=== PATIENT | male | born 1955 | race Caucasian/White ===

== ENCOUNTER → 2020-05-11 08:08 | Outpatient (CLI) | payer MEDICARE | END | disposition home or self-care (01) | LOC: D.HCCECHO 08:08 | PROVIDERS: ATTEND Internal Medicine Cardiovascular Disease | DX: I10 Essential (primary) hypertension (principal); R07.9 Chest pain, unspecified ==

== ENCOUNTER 2020-05-19 12:41 | Outpatient (CLI) | payer MEDICARE ==
[~2020-05-19] VITALS: Ht 177.8 cm; Wt 92.0 kg
--- NOTE | ~2020-05-19 | HEMODYNAMI ---
PATIENT:BRAD SUERO MEDICAL RECORD: [id number] : 51 LOCATION:[facility] ADMISSION DATE: 05/19/20 Generatedon:05/19/202014:53 Patient name: BRAD SUERO Patient #: [id number] SSN: : 1955 Date of study: 05/19/2020 Page: Of Hemodynamic Procedure Report Patient Data Patient Demographics Procedure consent was obtained First Name: BRAD Gender: Male Last Name: PIO : 1955 Patient #: [id number] Age: 64 year(s) Race: Additional ID: [id number] Contact details Address: [address] [address] State: [place] City: [place] Zip code: [address] Past Medical History Performed procedures and imaging results Date Procedure Procedure Results Comments 05/11/2020 Stress testing Positive->Intermediate with SPECT MPI risk Allergies: No known allergies Admission Admission Data Admission Date: 05/19/2020 Admission Time: 12:41 Arrival Date: 05/19/2020 Arrival Time: 0:00 Admit Source: Other Insurance Payor: Medicare [facility] #: [id number] Height (in.): 70 BSA: 2.1 (m2) Height (cm.): 177.8 BMI: 29.1 (kg/m2) Weight (lbs.): 202.83 Weight (kg.): 92 Lab Results Lab Result Date: 05/19/2020 Lab Result Time: 0:00 Biochemistry Name Units Result Min Max BUN mg/dl 16 --(---*)-- 7 18 Creatinine mg/dl 1.3 --(---*)-- 0.6 1.3 eGFR ml/min 70.12244 *-(----)-- 90 120 AM Procedure Procedure Types Cath Procedure Diagnostic Procedure LHC LHC w/Coronaries Sedation Charges Moderate Sedation up to 15 minutes Procedure Description Procedure Date Procedure Date: 05/19/2020 Procedure Start Time: 14:37 Procedure End Time: 14:52 Procedure Staff Name Function Dm Zaragoza MD Performing Physician Terra Lou RT Monitor Sita Lau RT Scrub Mary Gutierrez RN Nurse Indication Pulmonary hypertension Procedure Data Cath Procedure Fluoroscopy Diagnostic fluoroscopy Total fluoroscopy Time: 2.5 time: 2.5 min min Diagnostic fluoroscopy Total fluoroscopy dose: 711 dose: 711 mGy mGy Contrast Material Contrast Material Type Amount (ml) Isovue 370 63 Entry Location Entry Primary Successful Side Size Upsize Upsize Entry Closure [place]me[place] ccessful Closure Location (Fr) 1 (Fr) 2 (Fr) Remarks Device Remarks Radial Right 6 Fr Mechanical artery Short Compression Estimated blood loss: 5 ml Procedure Complications No complications Procedure Medications Medication Administration Route Dosage Oxygen etCO2 Nasal cannula 2 l/min Lidocaine 2% added to field 20 Heparin Flush Bag added to field 2 bags (1000units/500ml NS) 0.9% NaCl I.V. 100 ml/hr Versed I.V. 2 mg Fentanyl I.V. 50 mcg Versed I.V. 1 mg Fentanyl I.V. 50 mcg Versed I.V. 1 mg Radial Cocktail I.A. 1 syringe (Verapamil 2mg/Nitro 400mcg/Heparin 1500units) Hemodynamics Rest BSA: 2.1 (m2) O2 Consumption: Estimated: 249.01 (ml/min) O2 Consumption indexed: Estimated:118.58 (ml/min/m) Heart Rate: 76 (bpm) Pressure Samples Time Site Value (mmHg) Purpose Heart Use Rate(bpm) 14:42 LV 91/3,14 Snapshot 85 14:43 AO 80/46(58) Pullback 88 14:43 LV 103/-2,3 Pullback 88 Gradients Valve Time Site 1 Site 2 Mean SEP/DFP Peak To Heart Use (mmHg) (sec/min) Peak Rate (mmHg) (bpm) Aortic 14:43 LV AO 10 20 23 88 103/-2,3 80/46(58) Calculations Valve P-P Mean Valve Index Valve Source Name Gradient Area Flow (cm2) Aortic 23 10 23 10 Snapshots Pre Cath Intra NCS Post Cath Vital Signs Time Heart Resp SPO2 etCO2 NIBP (mmHg) Rhythm Pain Sedation Rate (ipm) (%) (mmHg) Status Level (bpm) 14:11:31 89 18 98 0 141/88(128) NSR 0 (11) 10(A) , No pain 14:15:50 85 13 100 37.4 126/76(99) NSR 0 (11) 10(A) , No pain 14:20:02 77 12 98 38.9 122/79(111) NSR 0 (11) 10(A) , No pain 14:24:14 85 17 98 38.1 129/74(104) NSR 0 (11) 10(A) , No pain 14:28:28 84 13 99 38.1 122/76(97) NSR 0 (11) 10(A) , No pain 14:32:40 80 13 99 38.9 114/75(91) NSR 0 (11) 10(A) , No pain 14:36:50 83 15 97 0 98/69(85) NSR 0 (11) 10(A) , No pain 14:40:54 78 14 97 0 109/70(92) NSR 0 (11) 9(A) , No pain 14:45:04 82 11 95 11.2 100/62(78) NSR 0 (11) 9(A) , No pain 14:49:07 80 12 96 24.6 106/70(79) NSR 0 (11) 9(A) , No pain Medications Time Medication Route Dose Verified Delivered Reason Notes Effectiveness by by 14:14:02 Oxygen etCO2 2 l/min Dm Buffie Per Nasal Nik Gutierrez RN physician cannula 14:14:07 Lidocaine 2% added 20ml Dm Buffie used for to vial Nik Gutierrez RN procedure field 14:14:13 Heparin Flush added 2 bags Dm Buffie used for Bag to Nik Gutierrez RN procedure (1000units/500ml field NS) 14:14:20 0.9% NaCl I.V. 100 Dm Buffie Per ml/hr Nik Gutierrez RN physician 14:32:41 Versed I.V. 2 mg Dm Buffie for sedation Nik Gutierrez RN 14:32:46 Fentanyl I.V. 50 mcg Dm Buffie for sedation Nik Gutierrez RN 14:38:24 Versed I.V. 1 mg Dm Buffie for sedation Nik Gutierrez RN 14:38:27 Fentanyl I.V. 50 mcg Dm Buffie for sedation Nik Gutierrez RN 14:41:50 Radial Cocktail I.A. 1 Dm Dm for (Verapamil syringe Nik Zaragoza MD vasodilation 2mg/Nitro 400mcg/Heparin 1500units) 14:42:30 Versed I.V. 1 mg Dm Mary for sedation Nik Gutierrez production internship Log Time Note 13:58:18 Informed consent obtained and on chart 14:00:55 Arrival Date: 05/19/2020 12:00:00 AM 14:01:07 Patient Height : 70 inches 14:01:15 Patient Weight : 202.83 lbs 14:01:17 Admit Source: Other 14:01:21 Insurance Payor : Medicare 14:01:49 Diagnostic Cath Status : Elective 14:02:12 Indication : Pulmonary hypertension 14:02:18 ACC Patient presents with Stable Angina CCS Anginal Class 2--Slight limitation of ordinary activity. 14:02:21 Procedure Status Elective Heart Cath (OP). 14:02:23 Time tracking: Regular hours (M-F 7:00 - 5:00) 14:02:29 Plan of Care:Hemodynamics will remain stable., Cardiac rhythm will remain stable., Comfort level will be maintained., Respiratory function will remain adequate., Patient/ family verbilizes understanding of procedure., Procedure tolerated without complication., Recovers from procedure without complications.. 14:02:43 H&P Date Dictated: 04/30/2020 Within 30 days and on chart.. 14:02:45 Pre-procedure instructions explained to patient. 14:02:45 Pre-op teaching completed and patient verbalized understanding. 14:02:47 Family in patients room. 14:02:48 Patient NPO since Midnight. 14:02:50 Sita Lau RT(R) sent for patient. Start room use. 14:02:58 Patient allergic to No known allergies 14:03:16 Stress Test: yes; abnormal INFERIOR 14:06:14 Lab Result : Creatinine 1.3 mg/dl 14:06:14 Lab Result : BUN 16 mg/dl 14:06:21 Patient received from Pre/Post Procedure Room to CCL 2 Alert and oriented. Tansferred to table in Supine position. 14:06:22 Vital chart was started 14:06:35 Warm blankets applied, and pollo hugger turned on for patient comfort. 14:06:37 Correct patient and procedure confirmed by team. 14:06:40 ECG and BP/O2 sat monitors applied to patient. 14:06:48 Is the patient allergic to Iodine/contrast media? No. 14:06:49 Was the patient premedicated? No 14:06:51 Is patient on blood thinner?No 14:06:53 Patient diabetic? Yes. 14:06:55 If diabetic: On Metformin? Yes 14:07:01 If on Metformin: Last Dose? 05/17/2020 14:07:02 ----Pre-sedation anethsthesia assessment.---- 14:08:38 Lab Result : eGFR AM 70.03509 ml/min 14:09:01 Previous problem with sedation/anesthesia? No ? 14:13:30 Snore? Yes 14:13:31 Sleep apnea? No 14:13:32 Deviated septum? No 14:13:33 Opens mouth fully? Yes 14:13:34 Sticks out tongue? Yes 14:13:36 Airway obstruction? No ? 14:13:40 Dentures? No ? 14:14:02 Oxygen 2 l/min etCO2 Nasal cannula was administered by Mary Gutierrez RN; Per physician; Verbal order read back and verified. 14:14:07 Lidocaine 2% 20ml vial added to field was administered by Mary Gutierrez RN; used for procedure; Verbal order read back and verified. 14:14:13 Heparin Flush Bag (1000units/500ml NS) 2 bags added to field was administered by Mary Gutierrez RN; used for procedure; Verbal order read back and verified. 14:14:20 0.9% NaCl 100 ml/hr I.V. was administered by Mary Gutierrez RN; Per physician; Verbal order read back and verified. 14:16:20 Pre procedure: right dorsailis pedis pulse 1+ Palpable, but thready & weak; easily obliterated 14:16:22 Modified Shmuel's test Ulnar < 7 seconds 14:16:30 Patient pain scale 0/10 ?. 14:16:36 IV patent on arrival in left hand with 0.9% NaCl at [facility]. 14:16:38 Lab results completed and on chart. 14:16:42 Right Radial & Right Groin area was prepped with chlora-prep and draped in sterile fashion 14:16:43 Alarms reviewed by R. N. 14:16:43 Sharps counted by scrub and verified by R.N. 14:18:52 Baseline sample Acquired. 14:18:57 Rhythm: sinus rhythm 14:29:15 Use device set Radial Dx or PCI 14:29:16 ACIST Syringe (74239) opened to sterile field. 14:29:17 Medline Cath Pack ([id number]) opened to sterile field. 14:29:17 Bag Decanter (2002) opened to sterile field. 14:29:18 ACIST Hand Control (73607) opened to sterile field. 14:29:18 ACIST Manifold (79070) opened to sterile field. 14:29:19 MBrace Wrist Support (001525981) opened to sterile field. 14:29:20 NEEDLE Cook 21G 4cm Radial (Q90171) opened to sterile field. 14:29:23 EMERALD Guide Wire (502-043) opened to sterile field. 14:29:23 SHEATH 6FR RAIN (6174690) opened to sterile field. 14:30:49 Risk of Mortality: 0.1 14:30:52 Risk of blood transfusion: 10.6 14:30:55 Risk of KHANG: 0.3 14:31:09 --------ALL STOP TIME OUT------ 14:31:10 Final Timeout: patient, procedure, and site verified with staff and physician. All members of the team are in agreement. 14:31:13 Right Radial & Right Groin site verified by team. 14:31:16 Fire Safety Assessment: A--An alcohol-based skin anteseptic being used preoperatively., C--Open oxygen or nitrous oxide is being used., D--An ESU, laser, or fiber-optic light is being used. 14:31:20 Physical assessment completed. ASA score P 2 - A patient with mild systemic disease as per Dm Zaragoza MD. 14:31:26 2) 60-89 Mildly reduced kidney function, and other findings (as for stage 1) point to kidney disease. 14:31:33 Maximum allowable contrast dose (3.7 X eGFR X 0.75)197 ml. 14:31:37 Sedation plan: IV Moderate Sedation Medication:Versed, Fentanyl 14:32:41 Versed 2 mg I.V. was administered by Mary Gutierrez RN; for sedation; Verbal order read back and verified. 14:32:46 Fentanyl 50 mcg I.V. was administered by Mary Gutierrez RN; for sedation; Verbal order read back and verified. 14:36:59 Procedure started. 14:36:59 Full Disclosure recording started 14:37:53 Local anesthetic to right radial artery with Lidocaine 2% by Dm Zaragoza MD.INITIAL ACCESS ONLY 14:38:24 Versed 1 mg I.V. was administered by Mary Gutierrez RN; for sedation; Verbal order read back and verified. 14:38:27 Fentanyl 50 mcg I.V. was administered by Mary Gutierrez RN; for sedation; Verbal order read back and verified. 14:40:42 A 6 Fr Short sheath was inserted into the Right Radial artery 14:41:02 LV gram done using KNOWLES 14:41:50 Radial Cocktail (Verapamil 2mg/Nitro 400mcg/Heparin 1500units) 1 syringe I.A. was administered by Dm Zaragoza MD; for vasodilation; Verbal order read back and verified. 14:42:30 Versed 1 mg I.V. was administered by Mary Gutierrez RN; for sedation; Verbal order read back and verified. 14:42:34 Injector settings: Ml/sec: 5, Volume: 15, 14:42:43 LV hemodynamics recorded. 14:42:58 EF : 50 % 14:43:23 LCA angiography performed. 14:44:52 Injector settings: Ml/sec: 3, Volume: 6, 14:45:54 RCA angiography performed. 14:45:57 Injector settings: Ml/sec: 3, Volume: 6, 14:46:34 ACCDominant side:Left 14:48:03 Catheter removed. 14:48:22 Sheath removed intact; hemostasis achieved with Mechanical Compression to the Right Radial artery. 14:48:26 Procedure ended.(Physican Out) 14:49:13 Fluoroscopy time 02.50 minutes. 14:49:18 Flurop Dose total: 711 14:49:18 Fluoroscopy dose: 711 mGy 14:49:22 Dose Area Product 66869 mGy/cm. 14:49:46 Contrast amount:Isovue 370 63ml. 14:49:49 Maximum allowable dose exceeded? No. 14:49:50 Sharps counted by scrub and verified by R.N. 14:49:53 [place] band inflated with 10cc of air. 14:49:55 Post Procedure Pulses reassessed and unchanged 14:49:58 Post procedure: right dorsailis pedis pulse 2+ Normal; easily identifiable; not easily obliterated. 14:50:01 Post-procedure physical assessment completed. ASA score P 2 - A patient with mild systemic disease as per Dm Zaragoza MD. 14:50:04 Post procedure rhythm: unchanged. 14:50:11 Estimated blood loss: 5 ml 14:50:13 Post procedure instruction explained to patient.Patient verbalizes understanding. 14:50:13 Patient needs reinforcement of post procedure teaching. 14:50:31 Procedure type changed to Cath procedure, Diagnostic procedure, LHC, C w/Coronaries, Sedation Charges, Moderate Sedation up to 15 minutes 14:51:34 Procedure and supply charges have been captured, reviewed, submitted and are correct. 14:51:38 Procedure Complication : No complications 14:51:40 Vital chart was stopped 14:51:50 [facility] Findings: MVD- CABG consult 14:51:54 Operative report dictated upon procedure completion. 14:51:54 See physician's report for complete and final results. 14:51:57 Report given to Pre/Post Procedure Room. 14:52:00 Patient transfered to Pre/Post Procedure Room with Stretcher. 14:52:02 Procedure ended. 14:52:02 Full Disclosure recording stopped 14:52:10 End room use (Document Last) Device Usage Item Name Manufacture Quantity Catalog Hospital Part Current Minima l Lot# / Number Charge Number Stock Stock Serial# Code ACIST Acist 1 30121 668310 [id number] [id number] 20 Syringe Medical (48998) Systems Inc Medline Medline 1 [id number] 880852 56092 055137 5 Cath Pack ([id number]) Bag Microtek 1 338949 66364 076024 5 Decanter Medical Inc. () ACIST Hand Acist 1 58649 030780 548287 539920 5 Control Medical (70946) Systems Inc ACIST Acist 1 13066 846893 101308 411804 5 Manifold Medical (89999) Systems Inc MBrace Advanced 1 140-0250-00 107644 89967 751767 5 Wrist Vascular Support Dynamics ([id number]) NEEDLE Cook Cook Medical 1 [id number] 885322 990070 579399 5 21G 4cm Radial (J97901) EMERALD Cardinal 1 502-455 057121 337013 926036 5 [facility] (533-164) SHEATH 6FR Cardinal 1 [id number] 529988 3899827 372839 5 [facility] ([id number]) Signature Audit Harper Stage Time Signature Unsigned Intra-Procedure 05/19/2020 Terra Lou 2:51:09 PM RT(R) Intra-Procedure 05/19/2020 Mary Gutierrez RN 2:52:55 PM Intra-Procedure 05/19/2020 Dm Zaragoza MD 2:53:29 PM Signatures Performing Physician : Signature : Dm Zaragoza MD Date : Time : Monitor : Terra Lou Signature : RT Date : Time : Nurse : Mary Gutierrez RN Signature : Date : Time : [address] [address]
[2020-05-19] MEDS ORDERED: LISINOPRIL20 MG PO (13:06)
[2020-05-19] MEDS ORDERED: LIPITOR40 MG PO (13:06)
[2020-05-19] MEDS ORDERED: GLYBURIDE5 M1 PO (13:06)
[2020-05-19] MEDS ORDERED: PIOGLITAZONE PO (13:07)
[2020-05-19] MEDS ORDERED: GLUCOPHAGE1000 MG PO (13:07)
[2020-05-19] MEDS ORDERED: BAYER CHEWABLE81 MG PO (13:08)
[2020-05-19] MEDS ORDERED: PIOGLITAZONE15 MG PO (13:08)
[2020-05-19 13:17] VITALS: BP 144/81; Ht 177.8 cm; Wt 92.0 kg
[2020-05-19 13:59] LABS: ANION GAP 12.5 mmol/L (8-16); CALCIUM 9.5 mg/dL (8.5-10.1); CARBON DIOXIDE 26.8 mmol/L (21.0-32.0); CHOL - HDL RATIO 2.5 ratio (2.3-4.9); CREATININE - SERUM 1.3 mg/dL (0.6-1.3); LDL-HDL RATIO 1.3 ratio (1.5-3.5); POTASSIUM - SERUM 4.3 mmol/L (3.5-5.1)
[2020-05-19 14:08] LABS: BASOPHILS 0.5 % (0-2); EOSINOPHILS 1.1 % (0-7); HEMATOCRIT 34.4 % (42.0-54.0); HEMOGLOBIN 11.3 g/dL (13.5-17.5); IMMATURE GRANULOCYTES 0.2 % (0-5); LYMPHOCYTES 35.7 % (15-50); MCH 29.3 pg (26.0-34.0); MCHC 32.8 g/dL (31.0-37.0); MCV 89.1 fL (80.0-100.0); MONOCYTES 6.3 % (2-11); NEUTROPHILS 56.2 % (40-80); PLATELET COUNT 231 10x3/uL (130-400); RBC 3.86 10x6/uL (4.20-6.10); RDW 14.9 % (11.5-14.5); WBC 6.2 10x3/uL (4.8-10.8)
--- NOTE | 2020-05-19 15:06 | NUR ---
PT ARRIVED BY STRETCHER. PLACED ON MONITORS. ASSESSMENT COMPLETED. VSS. FAMILY AT BEDSIDE. DR. CUMMINGS AT BEDSIDE SPEAKING WITH PT AND PT'S REGARDING PLAN OF CARE.
--- NOTE | 2020-05-19 15:19 | NUR ---
PT RESTING COMFORTABLY. RIGHT WRIST Z BAND IN PLACE. NO BLEEDING/HEMATOMA NOTED. SPOKE WITH DR. SONI'S NURSE PEDRO. SHE WILL BRING APPT CARD OVER TO PT BEFORE DISCHARGE TIME.
--- NOTE | 2020-05-19 15:50 | NUR ---
PT RESTING COMFORTABLY. VSS. RIGHT WRIST Z BAND IN PLACE. NO BLEEDING/HEMATOMA NOTED. CALL LIGHT WITHIN REACH. FAMILY AT BEDSIDE. PT DENIES NAUSEA/PAIN. SET UP WITH SANDWICH TRAY AND DRINK AT THIS TIME.
--- NOTE | 2020-05-19 16:05 | NUR ---
RIGHT WRIST Z BAND IN PLACE. NO BLEEDING/HEMATOMA NOTED. CALL LIGHT WITHIN REACH. VSS AT THIS TIME. 3cc OF AIR REMOVED FROM Z BAND. NO BLEEDING/HEMATOMA NOTED. FAMILY AT BEDSIDE. NO NEEDS AT THIS TIME.
--- NOTE | 2020-05-19 16:20 | NUR ---
3cc OF AIR REMOVED FROM Z BAND. NO BLEEDING/HEMATOMA NOTED.
--- NOTE | 2020-05-19 16:35 | NUR ---
3cc OF AIR REMOVED FROM Z BAND. NO BLEEDING/HEMATOMA NOTED.
--- NOTE | 2020-05-19 16:45 | NUR ---
Z BAND REMOVED AND DRESSING APPLIED. NO BLEEDING/HEMATOMA NOTED. PIV D/C'D WITH CATH TIP INTACT. TOLERATED WELL. VSS AT THIS TIME. PT INSTRUCTED TO GET UP AND DRESSED AT THIS TIME. FAMILY AT BEDSIDE TO ASSIST. CALL LIGHT WITHIN REACH.
--- NOTE | 2020-05-19 17:00 | NUR ---
PT AMBULATED TO RESTROOM. VOIDED WITHOUT DIFFICULTY. STEADY GAIT NOTED. RIGHT WRIST DRESSING C/D/I. NO S/S OF HEMATOMA NOTED. PT TAKEN DOWN TO VEHICLE BY WHEELCHAIR. NO S/S OF DISTRESS NOTED. ALL BELONGINGS AND PAPERWORK IN HAND.
== END 2020-05-19 17:00 | disposition home or self-care (01) ==
LOC: D.CATH 12:41
PROVIDERS: ATTEND Internal Medicine Cardiovascular Disease
DX: I25.119 Atherosclerotic heart disease of native coronary artery with unspecified angina pectoris (principal); R94.39 Abnormal result of other cardiovascular function study; E78.5 Hyperlipidemia, unspecified; E11.9 Type 2 diabetes mellitus without complications; I10 Essential (primary) hypertension; Z79.84 Long term (current) use of oral hypoglycemic drugs

== ENCOUNTER 2020-05-24 16:07 | Inpatient (IN) | payer MEDICARE ==
[~2020-05-24] VITALS: Ht 177.8 cm; Wt 93.9 kg
[~2020-05-24 16:07] MED LIST: BAYER CHEWABLE81 MG PO; GLUCOPHAGE1000 MG PO; GLYBURIDE5 M1 PO; LIPITOR40 MG PO; LISINOPRIL20 MG PO; PIOGLITAZONE PO; PIOGLITAZONE15 MG PO
[2020-05-25] MEDS ORDERED: METOPROLOL TART25 MG PO (11:17)
[2020-05-25 12:40] LABS: PROTIME 13.2 SECONDS (11.6-15.0)
[2020-05-25 12:41] LABS: APTT 39.3 SECONDS (22.8-39.4)
[2020-05-25 12:48] LABS: BASOPHILS 0.6 % (0-2); EOSINOPHILS 1.4 % (0-7); HEMOGLOBIN 11.1 g/dL (13.5-17.5); IMMATURE GRANULOCYTES 0.2 % (0-5); LYMPHOCYTES 38.8 % (15-50); MCHC 32.6 g/dL (31.0-37.0); MCV 88.8 fL (80.0-100.0); MEAN PLATELET VOLUME 9.5 fL (7.4-10.4); MONOCYTES 6.2 % (2-11); NEUTROPHILS 52.8 % (40-80); PLATELET COUNT 237 10x3/uL (130-400); RBC 3.83 10x6/uL (4.20-6.10); RDW 14.7 % (11.5-14.5); WBC 5.2 10x3/uL (4.8-10.8)
[2020-05-25 12:55] LABS: BACTERIA FEW /hpf (NEGATIVE); BILIRUBIN NEGATIVE (NEGATIVE); EPITHELIAL CELLS 0-5 /hpf (0-5); GLUCOSE 500 mg/dL (NEGATIVE); KETONE NEGATIVE (NEGATIVE); NITRITE NEGATIVE (NEGATIVE); RED CELLS - URINE RARE /hpf (0-5); SPECIFIC GRAVITY 1.015 (1.005-1.020); UROBILINOGEN NORMAL (NORMAL); WHITE CELLS - URINE 0-5 /hpf (NEGATIVE)
[2020-05-25 12:56] LABS: ALBUMIN 3.9 g/dL (3.4-5.0); ANION GAP 8.7 mmol/L (8-16); BILIRUBIN - TOTAL 0.34 mg/dL (0.2-1.3); CALCIUM 9.3 mg/dL (8.5-10.1); CARBON DIOXIDE 28.8 mmol/L (21.0-32.0); CREATININE - SERUM 1.3 mg/dL (0.6-1.3); PHOSPHOROUS 3.4 mg/dL (2.5-4.9); POTASSIUM - SERUM 4.5 mmol/L (3.5-5.1); PROTEIN - SERUM 7.6 g/dL (6.4-8.2); T4 THYROXIN - FREE 0.97 ng/dL (0.76-1.46); THYROID STIMULATING HORMONE 1.61 uIU/mL (0.36-3.74); URIC ACID 5.8 mg/dL (2.6-7.2)
[2020-05-27] VITALS (44 sets, daily range): BP systolic 101–144; BP diastolic 48–69; BMI 29.9; BMI 29.0
--- NOTE | 2020-05-27 14:46 | NUR ---
1330 PT RECIEVED TO ROOM WITH OR STAFF ETT 8.0 23 AT THE LIP PLACED ON VENT BY RT, R IJ CVL DRESSING CDI, SEE IV FLOWSHEET, MIDSTERNAL AND SUBSTERNAL DRESSINGS CDI WITH SUBSTERNAL TPM WIRES ATTACHED TO TPM AND TPM OFF, JOÃO DRAIN COMPRESSED WITH BLOODY DRAINAGE, CTX2 20CM SUCTION NO AIR LEAK AND BLOODY DRAINAGE, R RADIAL A LINE ZEROED WITH GOOD WAVEFORM AND WRIST PROTECTOR IN PLACE, RLE HARVEST SITES WITH COBAN GROIN TO ANKLE, LLE GUILLE/SCD PRESENT, THORPE DRAINING YELLOW URINE, UPDATED BY DR SONI, ABGS REVIEWED BY DR SONI WITH ORDERS FOR 20KCL AND ONE AMP BICARB AND TO REPEAT ABG IN 45 MINUTES, RT AWARE
--- NOTE | 2020-05-27 15:51 | NUR ---
PT AWAKENING, BP ELEVATED, DR SONI NOTIFIED WITH ORDERS FOR 5MG IV LOPRESSORX1
--- NOTE | 2020-05-27 16:54 | NUR ---
gs called to dr kelly, orders to extubate
--- NOTE | 2020-05-27 17:00 | NUR ---
1655 pt extubated and restraints removed
--- NOTE | 2020-05-27 17:12 | NUR ---
PT INSTRUCTED ON IS USE AND EDUCATED ON SPLINTING WITH PILLOW, ABLE TO COUGH WEAKLY
--- NOTE | 2020-05-27 17:32 | NUR ---
SPOKE WITH DR SONI PT VERY AGITATED, PULLING AT BLANKETS AND MOANING IN PAIN STATING HIS NEEDS TO CALL THE DR BECAUSE HE IS IN PAIN, ORDERS FOR ANOTHER 2MG MORPHINEX1
--- NOTE | 2020-05-27 18:35 | NUR ---
SPOKE WITH DR SONI THAT FSBS REMAINS OUTSIDE OF RANGE DESPITE INCREASING BY PROTOCOL, STATED TO CONTINUE WITH PROTOCOL AND [id number] CHECKS UNTIL STABLE
--- NOTE | 2020-05-27 19:20 | NUR ---
REPORT REC'D AND CARE ASSUMED, REC'D PT RESTING IN BED, O2 @ 2LITERS VIA NC, PT AWAKENS TO VERBAL STIMULI, ORIENTED X 4, MIDSTERNAL DRSG CDI, RIJDL DRSG CDI, SEE FLOWSHEET FOR GTTS, FSBS 176 @ THIS TIME, NO CHANGE TO INSULIN, PT MOANING AND GRUNTING ASKING FOR MORE PAIN MEDICATION, EXPLAINED TO PT THAT HE HAD PAIN MEDICATION AT 1800 AND IT WAS TOO SOON FOR ANYMORE AT THIS TIME, PT SPLINTING WITH HEART PILLOW CORRECTLY, SUBSTERNAL DRSG TO CT'S AND PACEMAKER WIRES CDI, MEDIASTINAL CT'S X 2 TO 20CM H2O SUCTION, NO AIR LEAK NOTED, SANGUINOUS DRAINAGE PRESENT, THORPE PATENT DRAINING CLEAR YELLOW URINE, RIGHT LEG COBAN DRSG CDI, GUILLE/SCD TO LEFT LOWER EXT, PPP, SR UP X 2, 1:1 NURSING IN USE.
--- NOTE | 2020-05-27 20:13 | NUR ---
PT REQUESTING MORE BLANKETS, INFORMED TEMPERATURE WAS 100.2 NO FURTHER BLANKETS PROVIDED AT THIS TIME.
--- NOTE | 2020-05-27 20:30 | NUR ---
AT BS , UPDATE PROVIDED, PT COMPLAINS OF SEVERE PAIN RATING IT "10" ON 0-10 PAIN SCALE, STATES " THAT DOCTOR SAID I WOULD NOT HURT AT ALL", 2MG MORPHINE GIVEN SLOW IVP, BP 136/57, RESP 18, O2 SAT 99% , WILL MONITOR CLOSELY FOR CHANGES.
--- NOTE | 2020-05-27 21:15 | NUR ---
PT REPOSITIONED UP IN BED FOR COMFORT, REMAINS AT BS, SIPS OF WATER PROVIDED, PT REPORTS MORPHINE "HELPED A LITTLE" VSS.
--- NOTE | 2020-05-27 21:45 | NUR ---
RT @ BS FOR BREATHING TX, PT PULLING 500 INITALLY ON IS PULLING 750 CONSECUTIVELY WITH ENCOURAGEMENT, TOLERATED FAIR, BP STABLE, WILL CONTINUE TO ENCOURAGE FREQUENT IS USE WHEN AWAKE.
--- NOTE | 2020-05-27 21:55 | NUR ---
EVENING MEDS GIVEN ORDERED, PT CONTINUES TO COMPLAIN OF PAIN WITH MOVEMENT, RATING "8" ON 0-10 PAIN SCALE, PERCOCET 10 GIVEN PO WITH EVENING MEDS, FRESH ICE WATER PROVIDED, PT DENIES FURTHER NEEDS, SR UP X 2, 1:1 NURSING.
--- NOTE | 2020-05-27 23:20 | NUR ---
REASSESSMENT COMPLETED, PT REPOSITIONED UP IN BED FOR COMFORT, SIPS OF WATER PROVIDED, PT STATES "PAIN HAS SETTLED DOWN", VSS, WILL CONT TO MONITOR FOR CHANGES.
[2020-05-28] VITALS (45 sets, daily range): BP systolic 103–137; BP diastolic 58–87; Ht 177.8 cm; Wt 93.9 kg
--- NOTE | 2020-05-28 01:47 | NUR ---
PT AWAKE, COMPLAINS OF CHEST DISCOMFORT, RATING "8" ON 0-10 SCALE, PT PULLING 500 ON IS AT THIS TIME, WEAK COUGH EVEN WHEN SPLINTING CORRECTLY WITH PILLOW, WATER WITH NO ICE PROVIDED ON REQUEST, BP STABLE, WEANING NITROGLYCERIN.
--- NOTE | 2020-05-28 03:45 | NUR ---
RADIOLOGY @ BS FOR AM CXR, PT REPOSITIONED IN BED FOR COMFORT, VSS.
--- NOTE | 2020-05-28 03:55 | NUR ---
PT COMPLAINS OF PAIN UNRELIEVED BY PAIN MEDICATION, 2MG MORPHINE GIVEN SLOW IVP, BP STABLE, WILL MONITOR CLOSELY FOR CHANGES.
--- NOTE | 2020-05-28 05:50 | NUR ---
AM LAB DRAWN FROM CVL AND SENT TO LAB, CHG BATH PROVIDED, PT ASSISTED X 2 ASSISTS UP TO RECLINER, TOLERATED WELL, BS TABLE AND CALL LIGHT PLACED IN REACH, FOOT OF RECLINER ELEVATED, PT DENIES NEEDS, VISIBLE TO NURSES DESK.
[2020-05-28 06:04] LABS: BASOPHILS 0.1 % (0-2); EOSINOPHILS 0 % (0-7); HEMATOCRIT 29.3 % (42.0-54.0); HEMOGLOBIN 9.7 g/dL (13.5-17.5); IMMATURE GRANULOCYTES 0.3 % (0-5); LYMPHOCYTES 12.4 % (15-50); MCH 28.9 pg (26.0-34.0); MCHC 33.1 g/dL (31.0-37.0); MCV 87.2 fL (80.0-100.0); MEAN PLATELET VOLUME 9.3 fL (7.4-10.4); MONOCYTES 9.8 % (2-11); NEUTROPHILS 77.4 % (40-80); RBC 3.36 10x6/uL (4.20-6.10); RDW 15.1 % (11.5-14.5); WBC 10.2 10x3/uL (4.8-10.8)
[2020-05-28 06:08] LABS: PLATELET COUNT 161 10x3/uL (130-400)
[2020-05-28 06:25] LABS: ALBUMIN 3.2 g/dL (3.4-5.0); ANION GAP 13.6 mmol/L (8-16); BILIRUBIN - TOTAL 0.35 mg/dL (0.2-1.3); CARBON DIOXIDE 25.6 mmol/L (21.0-32.0); CREATININE - SERUM 1.4 mg/dL (0.6-1.3); POTASSIUM - SERUM 4.2 mmol/L (3.5-5.1); PROTEIN - SERUM 6.1 g/dL (6.4-8.2)
--- NOTE | 2020-05-28 08:19 | NUR ---
729-RECIEVED AWAKE AND ALERT UP IN [id number] PAIN L LATERAL CHEST SIDE-PERCOCET 10MG PO GIVEN- 814-PT STATED PAIN IMPROVED-ENCOURAGED TO USE INCENTIVE SPIROMETRY-PT ATEMPTING
--- NOTE | 2020-05-28 08:51 | NUR ---
ANSWERING PT QUESTIONS TO BEST OF ABILITY-STRESSING MEDICATIONS MAY BE SLIGHTLY DIFFERENT ON DISCHARGE-PT CONCERNED BECAUSE USES DIFFERENT PHARMACIES TO GET BEST PRICES-REQUESTING PRESCRIPTIONS BE GIVEN PAPER TO NADIYAADATE THAT-PLACED ON MESSAGE BOARD IN AND SPOKE TO [facility] ROUNDING NURSEDARSHANA LEWIS
--- NOTE | 2020-05-28 10:29 | NUR ---
0915-DR SONI AT BEDSIDE-PT UP IN CHAIR-SR ON MONITOR 1000-R RADIAL JAMES REMOVED-PER POLICY-TOLERATED WELL-RELUCTANT TO HAVE CATHETER REMOVED-STATED WON'T BE ABLE TO STAND UP TO VOID-STATED TOO WEAK--AGREED WITH PT TO LEAVE IN PLACE UNTIL SEEN BY PHYSICAL THERAPY AND ABLE TO DETERMINE STRENGTH
--- NOTE | 2020-05-28 11:19 | NUR ---
PHYSICAL THERAPY AT BEDSIDE-PT ABLE TO STAND AND MARCH IN PLACE-NOT ABLE TO AMBULATE FURTHER-PT STATED 'TOO WEAK AND DIZZY"-ASSISTED TO BED-REFUSING LUNCH TRAY AT THIS TIME-PERCOCET 10MG PO GIVEN
--- NOTE | 2020-05-28 13:05 | OP ---
PATIENT NAME: BRAD SUERO MEDICAL RECORD: [id number] :51 LOCATION[address] D.[id number] ADMISSION DATE:05/27/20 SURGEON: LUIS CARLOS SONI MD DATE OF OPERATION: 05/27/2020 SURGEON: Luis Carlos Soni MD PROCEDURE PERFORMED: 1. Coronary artery bypass graft times 4 (left internal mammary artery to LAD, reverse saphenous vein graft from aorta to ramus intermedius and from aorta to posterior descending artery branch of circumflex sequenced on to posterolateral branch of circumflex). 2. Endoscopic saphenous vein harvest. PREOPERATIVE DIAGNOSIS: Coronary artery disease with left main coronary artery stenosis and rest angina. POSTOPERATIVE DIAGNOSIS: Coronary artery disease with left main coronary artery stenosis and rest angina. ANESTHESIA: General endotracheal anesthesia. ESTIMATED BLOOD LOSS: Total cardiopulmonary bypass with Cell Saver retransfusion. COMPLICATIONS: None. SPECIMENS: None. CONDITION: Stable. DISPOSITION: CV ICU. OPERATIVE FINDINGS: 1. Good contractility by transesophageal echocardiography before and after cardiopulmonary bypass. 2. Moderate varicosities of the right greater saphenous vein with some thickening of the vein, perhaps due to previous phlebitis, but overall adequate conduit. 3. Good quality left internal mammary artery. The LAD was a 2.0-mm vessel with severe disease. 4. Ramus intermedius 2.0 mm intramyocardial vessel. A vnax-vg-jbpk anastomosis was performed in the mid portion of this graft. 5. The posterolateral branch of the circumflex was the largest vessel on the inferior and inferolateral wall. It was a 2.0-mm vessel with severe disease as a ycmb-iu-itkv sequential of this graft the posterior descending artery branch of circumflex, which was a 1.5 mm vessel with severe disease. OPERATIVE INDICATION: Left main coronary stenosis and rest angina. OPERATIVE SUMMARY IN DETAIL: The patient was brought to the operating suite. General anesthesia was obtained, the patient was prepped and draped. Greater saphenous vein harvested endoscopically, right lower extremity. Side branch divided with electrocautery. The vessel was ligated proximally and distally removed. Side branches were tied and then sites or leakage sites were oversewn. OPERATIVE REPORT [id number] BRAD SUERO The leg was later closed in 2 layers. Median sternotomy incision was made. Subcutaneous tissues divided with electrocautery. The sternum was divided with a saw. The left hemisternum was elevated. Left pleural cavity was entered. Left internal mammary artery and vein was taken down as a pedicle graft. Sternal retractor was placed. Pericardium was opened. Heparin was given. Aorta was cannulated. Dual stage venous cannula was inserted. The internal mammary was clipped distally and made ready for anastomosis. Activated clotting time was appropriately elevated and the patient was placed on cardiopulmonary bypass. Sites for distal anastomosis were selected. Antegrade cardioplegia cannula was inserted. The patient's temperature was cooled to 34 degrees. Crossclamp was placed. Cardioplegia given antegrade and this was repeated at 15 to 20 minute intervals including down the completed vein grafts. Distal anastomosis was performed standard technique with a sjeh-eq-qzzf sequential to the PDA and also a lpta-at-uvtp anastomosis and the graft to the ramus intermedius proximal anastomosis in single cross-clamp technique. Aortic root de-aired by removing the cross clamp de-airing the root, tying the proximal anastomoses, deairing the vein grafts and restoring the flow. Proximal and distal anastomotic sites inspected for bleeding. The graft lay appropriately. Good Doppler signals were noted. The patient was fully rewarmed, weaned from cardiopulmonary bypass, and was stable. The patient was decannulated. Aortic cannulation site was oversewn. Thorough irrigation was undertaken. Hemostasis was ensured. Protamine was given. A drain was placed in the mediastinum with the tip in the right pleural cavity, one in the left pleural cavity. Left chest was evacuated and irrigated. Pericardial fat was loosely reapproximated in the midline. Ventricular pacing wire was placed. Internal mammary harvest site inspected for bleeding. Sternum was closed with wires. Fascia was closed, subcutaneous tissue was closed. Skin was closed. Dermabond was placed. The needle and sponge counts reported correct. Dressing was placed. The patient was stable to ICU. TRANSINT:[id number] Voice Confirmation ID: [id number] DOCUMENT ID: [id number] LUIS CARLOS SONI MD at 1305 CC: YOSHI CUMMINGS M.D. and SUMMER FRANCO MD [id number] DICTATION DATE: 05/27/20 1512 TITLE I ASSISTANT: 05/28/20 0022 ADM IN [facility] [address] [place] [address]
--- NOTE | 2020-05-28 17:19 | NUR ---
1400-DR SONI AT BEDSIDE-MORPHINE 2MG IVP GIVEN PREMED FOR CHEST TUBE REMOVAL-CHEST TUBES REMOVED BY DR SONI-JOÃO DRAIN IN PLACE 1630-ASSISTED PT TO CHAIR-TOLERATED WELL-FSBS 105-INSULIN GTT STOPPED-THORPE CATH D/C'D PER ORDER -URINAL PROVIDED FOR PT 1700-PT REFUSED MEAL-BROTH TAKEN -REFUSED-DIABETIC TABLETS-STATED NOT EATING-REQUESTED TO RETURN TO BED-INFORMED PT STRONGLY RECOMMENDED TO STAY UP IN CHAIR AND WORK WITH INCENTIVE SPIROMETRY-750ML WITH POOR EFFORT
--- NOTE | 2020-05-28 18:04 | NUR ---
1630-ASSISTED TO CHAIR FOR DINNER CHAITANYA-MAURILIO D/C'D ORDERED 1710-PT FOUND RETURNING SELF TO BED 1750-PERCOCET 10 PO GIVEN FOR 8/10 PAIN LEVEL
--- NOTE | 2020-05-28 19:30 | NUR ---
REPORT REC'D AND CARE ASSUMED, REC'D PT AWAKE, ALERT, ORIENTED X 3, RESING IN BED WATCHING TV, REPORTS SORENESS AT THIS TIME, RIGHT SCLDL DRSG CDI, SALINE LOCKED, SUBSTERNAL DRSG CDI TO PREVIOUS CT INSERTION SITES AND JOÃO DRAIN COMPRESSED WITH SEROUS DRAINAGE, COBAN REMOVED FROM RIGHT LEG, INCISIONS WELL APPROXIMATED, TEDS AND SCDS, PPP, PT DENIES NEEDS, BED IN LOW IN POSITION, SR UP X 2 ,CALL LIGHT IN REACH.
--- NOTE | 2020-05-28 20:55 | NUR ---
EVENING MEDS GIVEN, FSBS 201 8 UNITS REGULAR INSULIN GIVEN PER SLIDING SCALE, NO VISITORS IN AT THIS TIME, PT DENIES FURTHER NEEDS.
--- NOTE | 2020-05-28 22:30 | NUR ---
CM- ST @ 120 NOTED ON MONITOR, UPON ENTERING ROOM PT LAYING SIDEWAYS ON BED ATTEMPTING TO USE URINAL, AUDIBLE WHEEZE ON ENTERING THE ROOM, O2 SAT DISCONNECTED. PT ASSISTED TO SIT UP ON SIDE OF BED. PT STATES " I WAS TRYING TO URINATE", PT VOIDED 100CC CLEAR YELLOW URINE, ASSISTED PT TO STAND AND REPOSITION UP IN BED BEFORE LAYING BACK DOWN, PT ENCOURAGED TO USE IS, TEMP 99.2 ORALLY, STATES " I HAVE BEEN", PT WEAKLY PULLING 500 ON IS, WOULD NOT PRODUCE A COUGH, INFORMED PT THAT HE MUST WORK ON DEEP BREATHING AND COUGHING TO PREVENT PNEUMONIA AND THAT HIS HOSPITAL STAY WILL BE LONGER IF HE CANNOT BREATH EFFECTIVELY.
--- NOTE | 2020-05-28 23:30 | NUR ---
REASSESSMENT COMPLETED, PT RESTING QUIETLY IN BED WATCHING TV, REPORTS PAIN SLIGHTLY IMPROVED, USING HEART PILLOW TO SPLINT, VSS, WILL MONITOR FOR CHANGES
[2020-05-29] VITALS (24 sets, daily range): BP systolic 93–139; BP diastolic 62–91
--- NOTE | 2020-05-29 01:40 | NUR ---
PT CALLED FOR ASSISTANCE TO STAND UP AND VOID, VOIDED 200CC CLEAR YELLOW URINE, ASSISTED BACK TO BED, TOLERATED FAIR, PT DENIES FURTHER NEEDS.
--- NOTE | 2020-05-29 03:40 | NUR ---
RADIOLOGY AT BS FOR AM CXR
--- NOTE | 2020-05-29 05:45 | NUR ---
AM BLOOD DRAWN, GLUCOSE 210, DR. SONI NOTIFIED AND ORDER REC'D TO CONTINUE SLIDING SCALE
[2020-05-29 06:38] LABS: HEMATOCRIT 28.8 % (42.0-54.0); HEMOGLOBIN 9.6 g/dL (13.5-17.5); LYMPHOCYTES 14.6 % (15-50); MCH 29.4 pg (26.0-34.0); MCHC 33.3 g/dL (31.0-37.0); MCV 88.3 fL (80.0-100.0); MEAN PLATELET VOLUME 9.8 fL (7.4-10.4); NEUTROPHILS 75.7 % (40-80); PLATELET COUNT 168 10x3/uL (130-400); RBC 3.26 10x6/uL (4.20-6.10); RDW 15.3 % (11.5-14.5); WBC 10.3 10x3/uL (4.8-10.8)
[2020-05-29 08:03] LABS: ANION GAP 15.2 mmol/L (8-16); CALCIUM 7.8 mg/dL (8.5-10.1); CARBON DIOXIDE 24.1 mmol/L (21.0-32.0); CREATININE - SERUM 1.5 mg/dL (0.6-1.3); MAGNESIUM - SERUM 2.7 mg/dL (1.8-2.4); PHOSPHOROUS 2.7 mg/dL (2.5-4.9); POTASSIUM - SERUM 4.3 mmol/L (3.5-5.1)
--- NOTE | 2020-05-29 08:13 | NUR ---
0700-ASSISTED PT TO CHAIR-ENCOURAGED TO USE TOILET-PT AGREEABLE-THEN STATED PAIN TOO MUCH-SAT IN CHAIR-SR ON MONITOR-TEMP CHECK AT 99.2-STRESSED TO PT TEMPERATURE ELEVATED A RESULT OF NOT USING INCENTIVE SPIROMETER AND DEEP BREATHING AND COUGHING-WILL DELAY DISCHARGE HOME AND STRONGLY LEAD TO [place]-PT LOOKED AT NURSE AND NODDED HEAD IN AGREEMENT-PASSED PT INCENTIVE SPIROMETER-PT PLACED INCENTIVE ASIDE AND DIRECTED MEAL TRAY PLACEMENT-O2 AT 2L -BED STRIPPED OF LINEN AND ALL BEDRAILS PLACED UP-STRESSED TO PT UP IN CHAIR-PHYSICAL THERAPY WILL BE HERE FOR AMBULATION THIS AM
--- NOTE | 2020-05-29 09:28 | NUR ---
AT BEDSIDE-PHYSICAL THERAPY AT BEDSIDE-PT PARTICIPATED WITH PHYSICAL-SEE NOTE-ASSISTED TO BED- REMAINS AT BEDSIDE-ASKED IF PT COULD DO INCENTIVE-STATED HE ALREADY HAD-O2 AT 2L
--- NOTE | 2020-05-29 18:15 | NUR ---
1130-PT AMBULATED WITH PHYSICAL THERAPY-TOLERATED WELL ON TELEMETRY-AND O2 AT 2L 1300-DR SONI AT BEDSIDE-SPOKE WITH PT REGARDING COURSE OF TREATMENT-AND EXPECTATIONS-QUESTIONS ADDRESSED-DR FRANCO AT BEDSIDE 1500-AMBULATED WITH PHYSICAL THERAPY-TOLERATED WELL 1700-ASSISTED TO RESTROOM
--- NOTE | 2020-05-29 19:40 | NUR ---
REPORT REC'D AND CARE ASSUMED, REC'D PT RESTING IN BED AWAKE, ALERT, AND ORIENTED X 4, MIDSTERNAL DRSG CDI, RDLSCL DRSG CDI, BOTH PORTS SALINE LOCKED, O2 @ 2 LITERS, PREVIOUS CT SITE AND P/M WIRES DRSG CDI, LEFT SUBSTERNAL JOÃO DRAIN COMPRESSED WITH SEROUS DRAINAGE PRESENT, ABD SOFT, BS HYPOACTIVE, RIGHT LEG HARVEST SITES, WELL APPROXIMATED, NO DRAINAGE PRESENT, SCDS AND TEDS, PPP, SR UP X 2, BED IN LOW POSITION.
--- NOTE | 2020-05-29 21:20 | NUR ---
EVENING MEDS GIVEN, PT REQUESTING SOMETHING FOR PAIN, RATING PAIN "5", OXYCODONE PROVIDED, AT BS, URINAL EMPTIED OF 100CC YELLOW URINE, PT DENIES FURTHER NEEDS, BED IN LOW POSITION, CALL LIGHT IN REACH.
--- NOTE | 2020-05-29 23:00 | NUR ---
REASSESSMENT COMPLETED, PT RESTING IN BED EYES CLOSED, RESP EVEN AND UNLABORED, VSS.
[2020-05-30] VITALS (23 sets, daily range): BP systolic 95–135; BP diastolic 56–79
--- NOTE | 2020-05-30 02:00 | NUR ---
NO CHANGES IN STATUS
--- NOTE | 2020-05-30 05:50 | NUR ---
COMPLETE CHG BATH AND LINEN CHANGE, PT ASSISTED UP TO CHAIR, BRUSHED TEETH INDEPENDENTLY, WARM BLANKET PROVIDED, CALL LIGHT IN REACH
[2020-05-30 06:14] LABS: HEMATOCRIT 26.5 % (42.0-54.0); LYMPHOCYTES 21.6 % (15-50); MCH 29.8 pg (26.0-34.0); MCV 87.7 fL (80.0-100.0); MEAN PLATELET VOLUME 9.3 fL (7.4-10.4); NEUTROPHILS 68.5 % (40-80); PLATELET COUNT 172 10x3/uL (130-400); RBC 3.02 10x6/uL (4.20-6.10); RDW 14.6 % (11.5-14.5)
[2020-05-30 06:20] LABS: WBC 6.9 10x3/uL (4.8-10.8)
[2020-05-30 06:25] LABS: CALCIUM 7.7 mg/dL (8.5-10.1); CARBON DIOXIDE 27.2 mmol/L (21.0-32.0); CREATININE - SERUM 1.7 mg/dL (0.6-1.3); MAGNESIUM - SERUM 2.6 mg/dL (1.8-2.4); PHOSPHOROUS 2.6 mg/dL (2.5-4.9); POTASSIUM - SERUM 4.2 mmol/L (3.5-5.1)
--- NOTE | 2020-05-30 08:37 | NUR ---
DR SONI NOTIFIED OF AFIB 120'S-VS-ORDER RECIEVED-LOPRESSOR 2.5MG IVP GIVEN-NOTED FLUCTUATION IN TUBIG WITH RESP-NO AIRLEAK NOTED AT THIS TIME-PT C/O INCREASED PAIN TO CHEST TUBE INSERTIN SITE-ENCOURAGED USE OF REGULATORY AFFAIRS ANALYST PUMP
--- NOTE | 2020-05-30 08:45 | NUR ---
RECIEVED AWAKE UP IN CHAIR-NOTED AUDBLE WHEEZE TO L LATERAL-ENCOURAGED IMPROVED INCENTIVE INSPIROMETRY-DEMONSTRATED TO PT AND STRESSED-PT NODDED YES AND WITH SUPERVISION-ABLE TO INCREASE TO 1200 WITH BETTER AERATION ASKED IF COULD GO TO BED-STRESSED RECUMBANT LEADS TO POOLING FLUIDS IN LUNGS-AND DECLINE IN CONDITION
--- NOTE | 2020-05-30 09:47 | NUR ---
09-AMBULATING WITH PHYSICAL THERAPY-TELEMETRY O2 AT 2L-NOTED 147 AFIB-ASSISTED BACK TO BED NOTED AUDIBLE WHEEZE-DR SONI NOTIFIED OF AFIB-AND STATUS REPORT GIVEN-ORDERS RECIEVED AND NOTED-LAB DRAWN FOR MG- LOPRESSOR 2.5-IVP SLOW GIVEN 946-CONVERSION TO SR -REMAINS BEDREST L
--- NOTE | 2020-05-30 10:28 | NUR ---
DR FRANCO AT BEDSIDE-STATUS REPORT GIVEN AND ORDERS RECIEVED AND NOTED
--- NOTE | 2020-05-30 11:26 | NUR ---
DR SONI AT [facility] DRAIN REMOVED PERCOCET 5MG PO GIVEN
--- NOTE | 2020-05-30 18:26 | NUR ---
1615-AMBULATED IN HALLWAY-ON TELEMETRY-RHYTHM CHANGE-TO UCAF-127--DR SONI AT NOTIFIED OF SAME-ORDER RECIEVED AND NOTED -LOPRESSOR 2.5MG IVP GIVEN
--- NOTE | 2020-05-30 19:00 | NUR ---
PT ASSESSMENT COMPLETED AT THIS TIME, NO CHANGES NOTED FROM NURSE REPORT, PT AAOX4, NO COMPLAINTS OR DISTRESS NOTED, VSS, WILL MONITOR FOR CHANGES.
--- NOTE | 2020-05-30 21:00 | NUR ---
PT RESTING IN BED WATCHING TV, NO DISTRESS NOTED, VSS
--- NOTE | 2020-05-30 23:00 | NUR ---
PT REASSESSMENT COMPLETED AT THIS TIME, NO CHANGES NOTED FROM PREVIOUS EXAM, VSS
[2020-05-31] VITALS (22 sets, daily range): BP systolic 103–127; BP diastolic 51–77
--- NOTE | 2020-05-31 01:00 | NUR ---
PT ASKING ABOUT PAIN MED, PT RATES PAIN 04/28, PT GIVEN PRN PAIN MED AT THIS TIME
--- NOTE | 2020-05-31 03:00 | NUR ---
PT REASSESSMENT COMPLETED AT THIS TIME, NO CHANGES NOTED FROM PREVIOUS EXAM, VSS
--- NOTE | 2020-05-31 05:00 | NUR ---
PT RESTING WITH EYES CLOSED, RESP EVEN AND NON LABORED, VSS
[2020-05-31 06:27] LABS: BASOPHILS 0.2 % (0-2); EOSINOPHILS 0.7 % (0-7); HEMATOCRIT 22.9 % (42.0-54.0); HEMOGLOBIN 7.7 g/dL (13.5-17.5); LYMPHOCYTES 23.7 % (15-50); MCH 29.1 pg (26.0-34.0); MCHC 33.6 g/dL (31.0-37.0); MCV 86.4 fL (80.0-100.0); MEAN PLATELET VOLUME 9.4 fL (7.4-10.4); MONOCYTES 9.9 % (2-11); NEUTROPHILS 65.5 % (40-80); PLATELET COUNT 158 10x3/uL (130-400); RBC 2.65 10x6/uL (4.20-6.10); RDW 14.6 % (11.5-14.5); WBC 5.7 10x3/uL (4.8-10.8)
[2020-05-31 06:49] LABS: ANION GAP 11.2 mmol/L (8-16); CALCIUM 7.9 mg/dL (8.5-10.1); CARBON DIOXIDE 26.9 mmol/L (21.0-32.0); CREATININE - SERUM 1.4 mg/dL (0.6-1.3); MAGNESIUM - SERUM 2.8 mg/dL (1.8-2.4); POTASSIUM - SERUM 4.1 mmol/L (3.5-5.1)
--- NOTE | 2020-05-31 08:06 | TEE ---
PATIENT:BRAD SUERO MEDICAL RECORD: [id number] LOCATION:[place] [address] AGE OF PATIENT: 64 ADMISSION DATE: 05/27/20 SEX: M REFERRING PHYSICIAN: INTERPRETING PHYSICIAN: AXEL CASTANO MD TRANSESOPHAGEAL ECHOCARDIOGRAM Date: 05/27/20 PAMELA CHARGE Y INDICATIONS: CABG PREMEDICATIONS: PATIENT'S RESPONSE PROCEDURE DOPPLER MEASUREMENTS: LVIT LA PA RA LVOT RVOT Asc. Ao AV Gradient Peak AV Mean AV Area MV Gradient Peak MV Mean MV Area INTERPRETATION: Doppler: 2-D: COLOR FLOW DOPPLER NORMAL SALINE STUDY: MISCELLANOUS: DIAGNOSIS: PLAN: Grinder Carbon Plant:3 Dr. Ascencio Program Arranger: Ulices CROOK COMMENTS: DATE OF SERVICE: 05/28/2020 PROCEDURE: Intraoperative transesophageal. Preop, LVH appears present. LV internal dimensions are normal. Normal wall thickening, normal wall motion, EF 25%. Aortic valve is tricuspid with good valve excursion. Left atrium appears normal. Mitral valve appears normal. Trivial MR. Postoperatively, normal LV function with normal wall motion, normal wall thickening, EF is greater than or equal to 55%. Aortic valve is tricuspid TRANSESOPHAGEAL ECHOCARDIOGRAM REPORT [id number] BRAD SUERO with good valve excursion. Left atrium appears normal. Mitral valve appears normal. Trivial MR. TRANSINT:[id number] Voice Confirmation ID: [id number] DOCUMENT ID: [id number] at 0806 CC: [id number] DICTATION DATE: 05/28/20 0848 ONLINE ADVERTISING DIRECTOR: 05/28/20 1047 ADM IN [place] [address] [place] [address]
--- NOTE | 2020-05-31 12:37 | NUR ---
Nutrition Follow-up: POD 4 CABG. Pt continues to report decreased appetite. C/o hiccups. Denies N/V. -BM; +flatus. Agreed to try Glucerna. Diet: Diabetic PO intake: 11% avg x 9 meals Wt: 208.3# (05/31); 213.4# (05/28) Labs noted: Na 135, Glu 77, POC Glu 180, Ca 7.9, PO4 2.0, Mg 2.8 Meds noted: Tradjenta, Glyburide, Humulin, Protonix, Colace -Encourage PO intake and honor food preferences within diet restrictions. -Glucerna sent with lunch today for pt trial. -Monitor wt. -RD following.
--- NOTE | 2020-05-31 16:06 | EC ---
PATIENT:BRAD SUERO DATE OF SERVICE: 05/27/20 SEX: M MEDICAL RECORD: [id number] DATE OF : [birth year] LOCATION:[place] [address] AGE OF PATIENT: 64 ADMISSION DATE: 05/27/20 REFERRING PHYSICIAN: INTERPRETING PHYSICIAN: AXEL CASTANO MD ECHOCARDIOGRAM REPORT ECHO CHARGES 4 ECHO COMPLETE Date: 05/31/20 CLINICAL DIAGNOSIS: POST OP ECHOCARDIOGRAPHIC MEASUREMENTS (adult normal given) AC root (d.<3.7cm) 2.5 cm LV Septum d (<1.2 cm> 0.7 cm Valve Excursion 1.8 cm LV Septum (systole) 0.9 cm Left Atria (s.<4.0cm> 4.2 cm LVPW d(<1.2cm) 1.0 cm RV (d.<2.3cm) 3.0 cm LVPW (sytole) 1.3 cm LV diastole(<5.6CM) 3.9 cm MV E-F(>70mm/sec) cm LV systole 3.0 cm LVOT Diameter 1.6 cm MV exc.(>10mm) cm Est.ejection fraction (50-75%) % DOPPLER: LVIT cm/sec A 60 cm/sec E 75 cm/sec LA cm/sec RVSP 35.4 mmHg LVOT 80 cm/sec AOP1/2T m/s Asc. Ao 103 cm/sec RVOT 61 cm/sec RA cm/sec PA 95 cm/sec AV Gradient Peak 4.3 mmHg AV Mean 2.3 mmHg AV Area 1.5 cm MV Gradient Peak 2.4 mmHg MV Mean 1.0 mmHg MV Area cm COMMENTS: Yarder Boss: Ulices [facility] Jig And Fixture Repairer: 3 Dr. Ascencio TAPE# PACS Pericardial Effusion N DATE OF SERVICE: Adequate 2D, color flow imaging, spectral Doppler, and M-Mode. No LVH. LV internal dimension is normal. Wall motion is normal. EF is greater than or equal to 55%. Aortic valve is sclerotic. No evidence of stenosis by Doppler interrogation. Left atrium is minimally dilated at 5.2 cm. Mitral valve shows no prolapse. Trace MR. Right-sided chambers are grossly normal. Trace TR. No significant pericardial effusion is noted. ECHOCARDIOGRAM REPORT [id number] BRAD SUERO TRANSINT:[id number] Voice Confirmation ID: [id number] DOCUMENT ID: [id number] AXEL CASTANO MD at 1606 CC: [id number] DICTATION DATE: 05/31/20 1026 PHYSICAL THERAPY RESIDENT: 05/31/[address] [facility] [address] [place] [id number]
--- NOTE | 2020-05-31 19:00 | NUR ---
REPORT RECEIVED. PT SITTING UP IN BED, AAOX4. NO ACUTE DISTRESS AT THIS TIME. ASSESSMENT COMPLETED, SEE FLOWSHEET. RT IJ CVL TO SL, SEE IV FLOWSHEET. WILL CONTINUE TO MONITOR.
--- NOTE | 2020-05-31 20:10 | NUR ---
0700-RECIEVED PER FLOW SHEET UP IN CHAIR-O2 AT 2L-NOTED RHYTHM AALTERNATE BETWEEN SR AND AFIB 120-AT 10-15MIN INTERVALS-PT EXPRESSING NO DISTRESS-DOES NOT APPEAR TO BE AWARE OF OCCURANCE DR CABRERA AT BEDSIDE 0930-SR -AMBULATED WITH PHYSICAL THERAPY ON TELEMETRY AND O2 AT 2 L 1045-ECHOCARDIOGRAM IN PROGRESS- 1230-DR SONI AT BEDSIDE AND SPOKE WITH PT REGARDING FINDINGS-CURRENT LAB RESULTS-AND BP -DISCUSSED NEED FOR BLOOD UNIT-PT NODDED UNDERSTANDING 1300-ASSISTED TO BED PER REQUEST 1320-LAB AT BEDSIDE TO DRAW TYPE AND SCREEN-BANDING DONE PER PROTOCOL 1430-PT AMBULATED IN HALLWAY WITH PHYSICAL THERAPY-REMAINS IN SR AT THIS TIME 1450-PRBC UNIT [id number] ORDERED AND SET TO RUN OVER 3.5H 1710-NOTED ADIBLE TRACHEAL WHEEZING WITH POOR AIR ENTRY ARMANDO-PRBC PLACED ON HOLD-TEMP 99.8-DR SONI NOTIFIED OF SAME-DIRECTION RECIEVED TO STOP AND DISCONTINUE UNIT 1750-NOTED NO WHEEZING-AIR ENTRY GOOD ARMANDO-WITH SAME DIMINISHED TO BASES AND L PRODUCTIVE COUGH
--- NOTE | 2020-05-31 21:00 | NUR ---
PT AT BEDSIDE, WILL CONTINUE TO MONITOR.
--- NOTE | 2020-05-31 23:00 | NUR ---
REASSESSMENT COMPLETED, SEE FLOWSHEET. NO ACUTE DISTRESS NOTED.
[2020-06-01] VITALS (18 sets, daily range): BP systolic 102–134; BP diastolic 63–83
--- NOTE | 2020-06-01 01:00 | NUR ---
PT RESTING IN BED, REPORTS INTERMITTENT CHEST PAIN. PRN MEDICATION ADMINISTERED. WILL CONTINUE TO MONITOR.
--- NOTE | 2020-06-01 03:00 | NUR ---
REASSESSMENT COMPLETED, SEE FLOWSHEET.
--- NOTE | 2020-06-01 05:00 | NUR ---
PT SITTING UP IN BED, BACK FROM XRAY. NO ACUTE DISTRESS NOTED. WILL CONTINUE TO MONITOR.
[2020-06-01 05:57] LABS: ANION GAP 9.4 mmol/L (8-16); CALCIUM 7.8 mg/dL (8.5-10.1); CARBON DIOXIDE 27.4 mmol/L (21.0-32.0); CREATININE - SERUM 1.3 mg/dL (0.6-1.3); MAGNESIUM - SERUM 2.4 mg/dL (1.8-2.4); PHOSPHOROUS 2.3 mg/dL (2.5-4.9); POTASSIUM - SERUM 3.8 mmol/L (3.5-5.1)
[2020-06-01 05:59] LABS: HEMOGLOBIN 9.2 g/dL (13.5-17.5); LYMPHOCYTES 15.3 % (15-50); MCHC 33.3 g/dL (31.0-37.0); MCV 87.1 fL (80.0-100.0); NEUTROPHILS 71.5 % (40-80); RBC 3.17 10x6/uL (4.20-6.10)
[2020-06-01 06:25] LABS: HEMATOCRIT 27.6 % (42.0-54.0); PLATELET COUNT 205 10x3/uL (130-400); WBC 7.3 10x3/uL (4.8-10.8)
--- NOTE | 2020-06-01 07:45 | NUR ---
SHIFT REPORT RECEIVED. ALERT AND ORIENTED. UP IN CHAIR. VSS. NO FEVER NOTED. HAS RIJ WITH KCL INFUSING AT THIS TIME. MIDSTERNAL INCISION C/D/I. SUBSTERNAL DRESSING WITH TPM WIRE SECURED. RLE HARVEST SITES CDI. ON ROOM AIR. CALL LIGHT IN REACH. GUILLE'S ON BOTH LEGS. REPORTS THAT HE HAD SHARP PAIN TO LEFT CHEST DURING THE NIGHT. CURRENT PAIN LEVEL 3/10. NO FURTHER NEEDS AT THIS TIME. WILL CONTINUE TO MONITOR.
--- NOTE | 2020-06-01 09:00 | NUR ---
AM MEDS HAVE BEEN GIVEN. PT RESTING COMFORTABLY IN CHAIR. HAS HICCUPS. ICE WATER PROVIDED. DENIES OTHER NEEDS AT THIS TIME. WILL CONTINUE TO MONITOR.
--- NOTE | 2020-06-01 12:12 | NUR ---
AMBULATED TO CHAIR INDEPENDENTLY. MEAL TRAY DELEVERED AND SET UP. VSS. WILL CONTINUE TO MONITOR.
--- NOTE | 2020-06-01 16:45 | NUR ---
DR. SONI NOTIFIED THAT PT REPORTED SHARP PAIN TO LEFT CHEST DURING THE NIGHT. NO NEW ORDERS RECEIVED AT THIS TIME.
--- NOTE | 2020-06-01 17:40 | NUR ---
0.5MG IV ATIVAN ORDER FOR HICCUPS PER DR. SONI. RIJ TO STAY IN FOR TONIGHT. BI RIJ IN AM PER DR. SONI.
--- NOTE | 2020-06-01 19:15 | NUR ---
SHIFT ASSESSMENT COMPLETE. PATIENT DENIES ANY NEEDS AT THIS TIME. CALL LIGHT WITHIN REACH, BED IN LOW POSITION, AND WILL CONTINUE TO MONITOR. PATIENT WAS UP TO BEDSIDE AND VOIDED 200ML OF YELLOW URINE.
--- NOTE | 2020-06-01 21:13 | NUR ---
PAIN MED GIVEN PER MD ORDER AND PATIENT REQUEST. PATIENT STATES HAVING SHARP PAIN DUE TO HICCUPS.
--- NOTE | 2020-06-01 21:30 | NUR ---
PATIENT RESTING WITH SEVERE HICCUPS NOTED. PATIENT DENIES ANY NEEDS AT THIS TIME.
--- NOTE | 2020-06-01 22:39 | MORECARE ---
CASE MANAGEMENT DISCHARGE SUMMARY PATIENT: BRAD SUERO UNIT: [id number] ADM DATE: 05/27/20 AGE: 64 : 53 SEX: M ROOM/BED: [facility] AUTHOR: ERAN CRABTREE PHYSICIAN: REFERRING PHYSICIAN: LUIGI SONI MD DATE OF SERVICE: 06/01/20 Discharge Plan Patient Name: BRAD SUERO Facility: [facility]:[place] : 1955 Planned Disposition: Home Anticipated Discharge Date: Discharge Date: Expected LOS: Initial Reviewer: [email or web address] Initial Review Date: 05/27/2020 Generated: 06/01/20 11:38 pm Patient Name: BRAD SUERO Page [id number] at 2239 All edits/amendments must be made on the electronic document DICTATION DATE: 06/01/202237 PLANT TENDER: RON 06/01/202237 RPT#: [id number] DC DATE: STATUS: ADM IN [facility] [address] [place] [address] END OF REPORT
--- NOTE | 2020-06-01 23:00 | NUR ---
REASSESSMENT COMPLETE WITH NO CHANGES.
--- NOTE | 2020-06-01 23:04 | MORECARE ---
CASE MANAGEMENT DISCHARGE SUMMARY PATIENT: BRAD SUERO UNIT: [id number] ADM DATE: 05/27/20 AGE: 64 : 53 SEX: M ROOM/BED: D[facility] AUTHOR: ERAN CRABTREE PHYSICIAN: REFERRING PHYSICIAN: LUIGI SONI MD DATE OF SERVICE: 06/01/20 Discharge Plan Patient Name: BRAD SUERO Facility: [facility]:[place] : 1955 Planned Disposition: Home Anticipated Discharge Date: Discharge Date: Expected LOS: Initial Reviewer: [email or web address] Initial Review Date: 05/27/2020 Generated: 06/02/20 12:03 am Comments DCP- Discharge Planning Updated by [email or web address]: Sadaf Olmstead on 06/01/20 9:[address] Patient Name: BRAD SUERO Admission Status: Urgent Accout number: [id number] Admission Date: 05-27-2020 : 1955 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 CM educated patient on the CM role and verbal consent given by patient to complete assessment. Patient lives at home with family. Patient is independent. At discharge patient plans to return home and feels this is a safe discharge. CM discussed availability of home health, rehab services, and medical equipment. Patient will have family to transport home. Patient denied known discharge needs at this time. CM will continue to follow and will assist as needed with dc plans/needs. Hoeing Row Boss: Sadaf Olmstead DCPIA - Discharge Planning Initial Assessment Updated by [id number]: Sadaf Olmstead on 06/01/20 10:57 pm * Is the patient Alert and Oriented? Yes * How many steps to enter\exit or inside your home? 1-2 * PCP [place] * Pharmacy NEEDS WRITTEN RX - USES [facility] C[facility] * Preadmission Environment Home with Family * ADLs Independent * Equipment None * List name and contact numbers for known caregivers / representatives who currently or will assist patient after discharge: WILL SUERO - - [phone] * Verbal permission to speak to the caregivers and representatives has been obtained from the patient. Yes * Community resources currently utilized None * Additional services required to return to the preadmission environment? No * Can the patient safely return to the preadmission environment? Yes * Has this patient been hospitalized within the prior 30 days at any hospital? No Last DP export: 06/01/20 9:39 p Patient Name: BRAD SEURO Page 47049 at 2304 All edits/amendments must be made on the electronic document DICTATION DATE: 06/01/202303 LEATHER CURRIER: RON 06/01/202303 RPT#: [id number] DC DATE: STATUS: ADM IN [facility] [address] [place] [address] END OF REPORT
[2020-06-02] VITALS (15 sets, daily range): BP systolic 102–137; BP diastolic 62–86
--- NOTE | 2020-06-02 01:00 | NUR ---
PATIENT UP TO BEDSIDE TO VOID. ALSO PARTIAL LINEN CHANGE DONE DUE TO PATIENT SWEATING. CALL LIGHT WITHIN REACH, BED IN LOW POSITION, AND WILL CONTINUE TO MONITOR.
--- NOTE | 2020-06-02 03:00 | NUR ---
REASSESSMENT COMPLETE WITH NO CHANGES.
--- NOTE | 2020-06-02 05:00 | NUR ---
PATIENT RESTING QUIETLY AT THIS TIME. CALL LIGHT WITHIN REACH, BED IN LOW POSITION, AND WILL CONTINUE TO MONITOR.
[2020-06-02 05:46] LABS: ANION GAP 9.9 mmol/L (8-16); CALCIUM 8.1 mg/dL (8.5-10.1); CREATININE - SERUM 1.2 mg/dL (0.6-1.3); MAGNESIUM - SERUM 2.1 mg/dL (1.8-2.4); PHOSPHOROUS 2.1 mg/dL (2.5-4.9); POTASSIUM - SERUM 3.9 mmol/L (3.5-5.1)
--- NOTE | 2020-06-02 07:00 | NUR ---
REPORT RECEVIED FROM THE OFF GOING RN. SEE ASSESSMENT IN THE PTS FLOW SHEET. PT SITTING OOB IN HIS BEDSIDE CHAIR. PT DENIES PAIN AT THIS TIME. PT IS HICCUPING. PT PULLS ABOUT 1000 ON HIS IS. PT INSTRUCTED TO USE HIS IS 10X'S/H. NRS ON THE MONITOR. RIGHT IJ CVL NOTED. DRESSING C/D/I. MISTERNAL AND SUBSTERNAL DRESSING C/D/I. TPM WIRE NOTED UNDER DRESSING. RLE SUIT ATTENDANT AND WELL APPROXIMATED. NO S/SX OF INFECTION NOTED. WILL CONT POC.
[2020-06-02 07:28] LABS: HEMATOCRIT 27.4 % (42.0-54.0); HEMOGLOBIN 9.2 g/dL (13.5-17.5); LYMPHOCYTES 24.9 % (15-50); MCH 29.5 pg (26.0-34.0); MCHC 33.6 g/dL (31.0-37.0); MCV 87.8 fL (80.0-100.0); MEAN PLATELET VOLUME 10.4 fL (7.4-10.4); PLATELET COUNT 200 10x3/uL (130-400); RBC 3.12 10x6/uL (4.20-6.10); RDW 14.5 % (11.5-14.5); WBC 7.7 10x3/uL (4.8-10.8)
--- NOTE | 2020-06-02 07:55 | NUR ---
PER DR SONI, GIVE 0.5 IV ATIVAN AFTER CXR FOR HICCUPS.
--- NOTE | 2020-06-02 08:00 | NUR ---
PT BACK FROM PA AND LAT. AM MEDS GIVEN WITH NO ISSUES. BREAKFAST TRAY PROVIDED. CALL LIGHT IN REACH. WILL CONT POC.
--- NOTE | 2020-06-02 09:22 | NUR ---
HICCUPS SUBSIDED FOR ABOUT 1 HOUR THEN THE PT STARTED HICCUPING AGAIN. PER DR SONI. US LEFT LOWER CHEST IN BED SITTING UP.
--- NOTE | 2020-06-02 10:07 | NUR ---
DR JANG NURSE, PEDRO LEWIS, CALLED THE PHARMASIST AND ELANA BAIG AND BRICE FOR THE HICCUPS. FIRST DOSE GIVE. WILL MONITOR.
--- NOTE | 2020-06-02 10:13 | NUR ---
DR CABRERA AT THE PTS BEDSIDE.
--- NOTE | 2020-06-02 11:03 | NUR ---
BRANNON FROM RADIOLOGY CALLED REGARDS TO ULTRASOUND. THEY STATED THEY WILL BE UP IN THE UNIT SOON.
--- NOTE | 2020-06-02 12:00 | NUR ---
MEAL TRAY PROVIDED FOR THE PT. DENIES PAIN/NEEDS AT THIS TIME. WILL CONT POC.
--- NOTE | 2020-06-02 12:24 | NUR ---
Nutrition Follow-up: POD 6 CABG. Pt reports eating <50% of breakfast this AM. +hiccups. -BM; +flatus. Did not like Glucerna. Diet: Diabetic Wt: 206# (06/02); 208.3# (05/31); 213.4# (05/28); noted I/Os (-2050 on 06/01, -2350 on 05/31) Labs noted: Na 135, Glu 139, Ca 8.1, PO4 2.1 Meds noted: Tradjenta, Glyburide, Humulin, Protonix, Colace -Encourage PO intake and honor food preferences within diet restrictions. -Rec consider increasing bowel regimen to encourage BM. -Monitor wt. -RD following.
--- NOTE | 2020-06-02 14:30 | NUR ---
PATIENT AMBULATING IN [place] WITH PHYSICAL THERAPY, HEART RATE INCREASED TO 150'S IRREGULAR PATIENT SYMPTOMATIC WITH SHORTNESS OF BREATH. STATES HE CAN FEEL HIS HEART POUNDING. BLOOD PRESSURE STABLE. OXYGEN APPLIED. RETURNED TO BED. HERE, ORDERED CORDARON BOLUS, AFTER 4 MINUTES PATIENT RETURNED TO [facility]. GRADUAL IMPROVMENT OF SHORTNESS OF BREATH.
--- NOTE | 2020-06-02 15:52 | NUR ---
RESTING COMFORTABLY NO DISTRESS. NAPPING AT INTERVALS. CHEST AND SUBSTERNAL DRESSING DRY AND INTACT. PACER WIRES SECURE TO SUBSTERNAL. MONITOR SR. RIJ CENTRAL LINE FLUSHED WITHOUT DIFFICULTY. DRESSING DRY AND INTACT.
--- NOTE | 2020-06-02 15:53 | NUR ---
PATIENT STILL HAS HICCUPS
--- NOTE | 2020-06-02 16:30 | NUR ---
dinner tray served. up ambulating in room. shaved self and brushed his teeth.
--- NOTE | 2020-06-02 17:57 | NUR ---
resting comfortably in bed. resp deep and regular. monitor sr. no hiccups noted
--- NOTE | 2020-06-02 19:30 | NUR ---
SHIFT ASSESSMENT COMPLETE. NO DISTRESS NOTED AT THIS TIME.
--- NOTE | 2020-06-02 21:30 | NUR ---
PATIENT RESTING QUIETLY WATCHING TV WITH NO DISTRESS NOTED. CALL LIGHT WITHIN REACH, BED IN LOW POSITION, AND WILL CONTINUE TO MONITOR.
--- NOTE | 2020-06-02 23:00 | NUR ---
REASSESSMENT COMPLETE.
[2020-06-03] VITALS (24 sets, daily range): BP systolic 94–121; BP diastolic 47–76
--- NOTE | 2020-06-03 01:52 | NUR ---
PATIENT UP TO BEDSIDE AND NEEDED LINENS CHANGED DUE TO HAVING NIGHT SWEATS. PATIENT ASSISTED WITH CHG BATH AND FULL LINEN CHANGE COMPLETE.
--- NOTE | 2020-06-03 03:00 | NUR ---
REASSESSMENT COMPLETE WITH NO CHANGES NOTED.
--- NOTE | 2020-06-03 03:00 | NUR ---
REASSESSMENT COMPLETE.
--- NOTE | 2020-06-03 04:29 | NUR ---
PATIENT SLEEPING AT THIS TIME. NO HICCUPS NOTED. CALL LIGHT WITHIN REACH, BED IN LOW POSITION, AND WILL CONTINUE TO MONITOR.
--- NOTE | 2020-06-03 04:31 | NUR ---
PATIENT IN AND OUT OF AFIB TO SR. NO DISTRESS NOTED.
--- NOTE | 2020-06-03 04:35 | NUR ---
PATIENT TO XRAY DEPARTMENT WITH RADIOLOGY STAFF.
--- NOTE | 2020-06-03 04:53 | NUR ---
PATIENT RETURNED FROM XRAY AND UP INTO [facility]. PATIENT DENIES ANY NEEDS.
--- NOTE | 2020-06-03 07:14 | NUR ---
SHIFT REPORT RECEIVED. PT UP IN CHAIR. ALERT AND ORIENTED. RATES PAIN 5/10 LEFT CHEST. PERCOCET 5MG GIVEN PER ORDER. HICCUPS CONTINUE. HAS RIJ CVL S.L. MIDSTERNAL DRESSIG C/D/I. SUBSTERNAL DRESSING WITH PACER WIRE SECURED. HR 100 SINUS TACH. BP 121/73. CALL LIGHT IN REACH. SAFETY MEASURES IN PLACE. WILL CONTINUE TO MONITOR.
[2020-06-03 08:47] LABS: HEMATOCRIT 26.3 % (42.0-54.0); HEMOGLOBIN 8.9 g/dL (13.5-17.5); LYMPHOCYTES 17.7 % (15-50); MCH 29.6 pg (26.0-34.0); MCHC 33.8 g/dL (31.0-37.0); MCV 87.4 fL (80.0-100.0); MEAN PLATELET VOLUME 8.8 fL (7.4-10.4); NEUTROPHILS 69.5 % (40-80); PLATELET COUNT 238 10x3/uL (130-400); RBC 3.01 10x6/uL (4.20-6.10); RDW 14.6 % (11.5-14.5); WBC 7.7 10x3/uL (4.8-10.8)
[2020-06-03 09:00] LABS: ANION GAP 12.2 mmol/L (8-16); CALCIUM 8.3 mg/dL (8.5-10.1); CARBON DIOXIDE 25.7 mmol/L (21.0-32.0); CREATININE - SERUM 1.3 mg/dL (0.6-1.3); POTASSIUM - SERUM 3.9 mmol/L (3.5-5.1)
[2020-06-03 09:07] LABS: ALBUMIN 2.6 g/dL (3.4-5.0); BILIRUBIN - TOTAL 0.58 mg/dL (0.2-1.3); PROTEIN - SERUM 6.3 g/dL (6.4-8.2)
--- NOTE | 2020-06-03 09:47 | NUR ---
RATES PAIN 0/10. CONTINUES HAVING HICCUPS. SPOUSE AT BEDSIDE. NO FURTHER NEEDS AT THIS TIME.
--- NOTE | 2020-06-03 14:04 | NUR ---
AMBULATED WITH PHYSICAL THERAPY ABOUT 100FT. PT REPORTED SHORTNESS OF BREATH. O2 SATURATION AT THAT TIME WAS IN MID 80S. AMBULATED BACK TO ROOM. O2 SAT INCREASED BY INTO 90S ONCE AT REST. CURRENT O2 SAT ON ROOM AIR IS 95%.
--- NOTE | 2020-06-03 18:00 | NUR ---
PT STATES CONCERN ABOUT FEELING WEAKER AND SHORT OF BREATH TODAY. FEELS CONCERN THAT HIS WILL NOT KNOW WHAT TO DO AT HOME IF HE GETS SHARP PAIN IN HIS CHEST/HEART OR SHORT OF BREATH. PT ENCOURAGED TO CONTINUE TO PERFORM I.S. TO HELP EXPAND HIS LUNGS. NO FURTHER NEEDS AT THIS TIME. WILL CONTINUE TO MONITOR.
--- NOTE | 2020-06-03 19:45 | NUR ---
BEDSIDE SHIFT REPORTING COMPLETED. INTRODUCED MYSELF TO PT PRIMARY RN FOR [facility] SHIFT. PT IS A&O SITTING UP IN BEDSIDE CHAIR WATCHING TV. SHIFT ASSESSMENT COMPLETED. PT STATES HE IS FEELING ALRIGHT OVERALL. PT DENIES ANY CURRENT PAIN OR NEEDS AT THIS TIME. WILL REVIEW CHART AND ORDERS AND BEGIN PLAN OF CARE. CL IN REACH.
--- NOTE | 2020-06-03 21:30 | NUR ---
PT CALLED ME IN HIS ROOM AND C/O BEING WEAK WITH DIZZINESS WHEN HE GETS UP TO USE THE BR. APPARENTLY HE HAS FELT WEAKER ALL DAY. VSS, REVIEWED EKG AND PT IS IN SINUS RHYTHM WITH OCCASIONAL PVCS. LUNGS CTA THROUGHOUT ALL LOBES. EXPLAINED TO PT WE WILL CONTINUE TO MONITER IT AND WENT OVER HIS NEW MEDICATION OF BETAPACE IT MAY BE A RESULT OF THESE FEELINGS. REASSURED PT THAT HE IS DOING GOOD RIGHT NOW AND WILL JUST ASSIST HIM TO THE BR HE IS WEAK AND CPOC.
--- NOTE | 2020-06-03 23:26 | NUR ---
PT FINALLY ABLE TO HAVE A BM AND STATES MUCH RELIEF. PT STILL VERY SOB AND LABORED WITH EXERTION. O2 SAT DROPS TO 88% DRUING ACTIVITY BUT IMMEDIATELY RECOVERS AT REST. ASSISTED PT BACK INTO BED AND GOT HIM READY FOR BED. HOPEFULLY HE CAN GET SOME REST AND FEEL BETTER. VSS AND BEING MONITERED. BED IN LOWEST, SIDE RAILS X2. CL IN REACH.
[2020-06-04] VITALS (23 sets, daily range): BP systolic 92–157; BP diastolic 51–101
--- NOTE | 2020-06-04 01:15 | NUR ---
ASSISTED PT UP TO BR VIA STAND BY ASSIST. PT AMBULATES SLOW AND STEADY WITH WALKER. PT STILL SOB UPON EXERTION BUT PULSE OX AT 95% PT DENIES ANY CURRENT PAIN OR NEEDS AT THIS TIME. WILL CPOC.
--- NOTE | 2020-06-04 05:00 | NUR ---
R.IJ BLOOD DRAW COMPLETED. FLUSHED BOTH LUMEN OF CVL WITHOUT ANY RESISTANCE MET USING PULSATILE TECHNIQUE. SWAB CAPS IN USE. LABELED AND SENT TUBES TO LAB. PT SITTING UP IN BED RESTING QUIETLY STATES HE IS FEELING A LITTLE BETTER BUT STILL C/O GENERALIZED WEAKNESS AND EXHAUSTION WITH AMBULATION. HICCUPS ARE BETTER AND LESSENED. NO CURRENT NEEDS AT THIS TIME. CL IN REACH, BED IN LOWEST, SIDE RAILS X2. WILL CTM.
[2020-06-04 05:45] LABS: HEMATOCRIT 24.1 % (42.0-54.0); HEMOGLOBIN 8.1 g/dL (13.5-17.5); LYMPHOCYTES 17.7 % (15-50); MCH 29.3 pg (26.0-34.0); MCHC 33.6 g/dL (31.0-37.0); MCV 87.3 fL (80.0-100.0); NEUTROPHILS 73.6 % (40-80); PLATELET COUNT 215 10x3/uL (130-400); RBC 2.76 10x6/uL (4.20-6.10); RDW 14.7 % (11.5-14.5); WBC 8.3 10x3/uL (4.8-10.8)
[2020-06-04 06:16] LABS: ALBUMIN 2.4 g/dL (3.4-5.0); BILIRUBIN - TOTAL 0.47 mg/dL (0.2-1.3); CALCIUM 8.2 mg/dL (8.5-10.1); CARBON DIOXIDE 23.6 mmol/L (21.0-32.0); CREATININE - SERUM 1.4 mg/dL (0.6-1.3); PROTEIN - SERUM 5.9 g/dL (6.4-8.2)
[2020-06-04 06:37] LABS: ANION GAP 14.4 mmol/L (8-16)
--- NOTE | 2020-06-04 07:00 | NUR ---
REC'D REPORT AND RESUMED CARE, AAO, UP IN CHAIR, DENIES PAIN, ASSESSMENT COMPLETED MAR FLOWSHEET, CALL LIGHT IN REACH, NO NEEDS A THIS TIME
--- NOTE | 2020-06-04 09:00 | NUR ---
MORNING MEDS GIVEN PER MAR FLOWSHEET, TOLERATED WITHOUT DIFFICULTY
--- NOTE | 2020-06-04 09:29 | NUR ---
Nutrition follow-up: Pt receiving a consistent CHO diet with po intake 100% of some meals Pt c/o weak, dizzy, SOB on exertion. Labs reviewed; noted H/H low Pt with continued hiccups +BM RDN following.
--- NOTE | 2020-06-04 11:00 | NUR ---
HAVING CONTINUOUS HICCUPS, STATED THAT THEY HAVE GIVEN HIM MEDS BUT THEY ARE NOT WORKING, ASSESSMENT COMPLETED, NO OTHER ACUTE CHANGES FROM PREVIOUS
--- NOTE | 2020-06-04 13:43 | NUR ---
BLOOD DRAWN FOR NEW CROSSMATCH FROM RIGHT IJ, TOLERATED WITHOUT DIFFICULTY
--- NOTE | 2020-06-04 13:57 | NUR ---
AMBULATED WITH PT IN UNIT, TOLERATED WITHOUT DIFFICULTY 250 FT
--- NOTE | 2020-06-04 15:00 | NUR ---
REASSESSMENT COMPLETED PER FLOWSHEET, UP IN CHAIR WATCHING TV, NO C/O OF PAIN AND NO SIGN OF DISTRESS, CALL LIGHT IN REACH, NO NEEDS AT THIS TIME
--- NOTE | 2020-06-04 16:45 | NUR ---
PRBC'S INITIATED PER ORDER, VSS 1700 VSS, PRBC'S CONTINUES NO SIGN OF DISTRESS
--- NOTE | 2020-06-04 18:45 | NUR ---
PRBC'S COMPLETED, VSS, CALL LIGHT IN REACH, VOICES NO NEEDS AT THIS TIME, FALILED ATTEMPT AT PIV, HAVING OTHER NURSE ATTEMPT
--- NOTE | 2020-06-04 19:45 | NUR ---
SHIFT ASSESSMENT COMPLETED SEE FLOWSHEET. PT DENIES NEEDS. MIDLINE INCISION DRESSWING CDI. PT HAS AUDIBLE HICCUPS AND WHEEZING. LUNG YUSUF CLEAR ON LEFT, RIGHT MIDDLE LOBE WHEEZING NOTED ON AUSCULTATION. PT UP TO BATHROOM AT THIS TIME
--- NOTE | 2020-06-04 20:44 | NUR ---
PT REQUESTING LIGHTS OFF, STILL HAS HICCUPS, HAS PULSATING CHEST PAIN IN THE CENTER OF HIS CHEST 5 ON A 1-10 PAIN SCALE, VSS, NO CHANGES TO ECG, WILL CLOSELY MONITOR
[2020-06-04 21:18] LABS: HEMATOCRIT 26.4 % (42.0-54.0); HEMOGLOBIN 8.8 g/dL (13.5-17.5)
--- NOTE | 2020-06-04 22:11 | NUR ---
FAILED ATTEMPT AT PIV START, PREVIOUS SHIFT STICK X4 AND 3 NURSES. PT REFUSING PIV START AT THIS TIME. EDUCATED ABOUT CENTRAL LINE REMOVAL, WILL ATTEMPT TO GAIN CONSENT AND START PIV IN THE AM
--- NOTE | 2020-06-04 23:35 | NUR ---
EMPTIED PT URINAL AT THIS TIME. 800 CC YELLOW URINE, REASSESSMENT COMPLETED SEE FLOWSHEET, PT DENIES NEEDS VSS CPOC
[2020-06-05] VITALS (8 sets, daily range): BP systolic 101–122; BP diastolic 56–78
--- NOTE | 2020-06-05 03:12 | NUR ---
REASSESSMENT COMPLETED SEE FLOWSHEET
--- NOTE | 2020-06-05 05:10 | NUR ---
PATIENT RECEIVED HS MEDICATION
[2020-06-05 05:11] LABS: BASOPHILS 0.3 % (0-2); EOSINOPHILS 1.1 % (0-7); HEMATOCRIT 24.9 % (42.0-54.0); HEMOGLOBIN 8.3 g/dL (13.5-17.5); IMMATURE GRANULOCYTES 0.4 % (0-5); LYMPHOCYTES 19.1 % (15-50); MCH 28.6 pg (26.0-34.0); MCHC 33.3 g/dL (31.0-37.0); MCV 85.9 fL (80.0-100.0); MEAN PLATELET VOLUME 8.4 fL (7.4-10.4); MONOCYTES 9.3 % (2-11); NEUTROPHILS 69.8 % (40-80); PLATELET COUNT 253 10x3/uL (130-400); RDW 14.4 % (11.5-14.5); WBC 7.2 10x3/uL (4.8-10.8)
--- NOTE | 2020-06-05 05:30 | NUR ---
PT OFF UNIT VIA WHEELCHAIR ACCOMPANIED BY RADIOLOGY STAFF. TO RADIOLOGY THIS AM FOR SCHEDULED IMAGING
--- NOTE | 2020-06-05 05:48 | NUR ---
PT BACK IN ROOM CV.3 PLACED BACK ON MONITORS AT THIS TIME. VSS CPOC
[2020-06-05 05:55] LABS: ALBUMIN 2.6 g/dL (3.4-5.0); ANION GAP 13.7 mmol/L (8-16); BILIRUBIN - TOTAL 0.43 mg/dL (0.2-1.3); CALCIUM 8.4 mg/dL (8.5-10.1); CARBON DIOXIDE 24.1 mmol/L (21.0-32.0); CREATININE - SERUM 1.3 mg/dL (0.6-1.3); POTASSIUM - SERUM 3.8 mmol/L (3.5-5.1)
--- NOTE | 2020-06-05 07:20 | NUR ---
REPORT RECEIVED. PT UP SITTING IN CHAIR. BLOOD SUGAR 63 THIS MORNING. PT DRINKING ORANGE JUICE. PT HAS RIGHT IJ THAT IS SALINE LOCKED. HAD CABG X4 WITH RIGHT LEG HARVEST THAT IS OPEN TO AIR. PT IS FSBS ACHS. CURRENTLY IN CONTROLLED AFIB.
--- NOTE | 2020-06-05 07:37 | NUR ---
GAVE PT ORANGE JUICE FOR 63 BLOOD SUGAR, AWAKE ALERT AND ORIENTED, SITTING UP IN CHAIR.
--- NOTE | 2020-06-05 09:30 | NUR ---
DR CABRERA ROUNDING ON PT.
--- NOTE | 2020-06-05 10:02 | NUR ---
DR SONI ROUNDVARINDER ON PT.
[2020-06-05] MEDS ORDERED: BACLOFEN10 MG PO (10:08)
[2020-06-05] MEDS ORDERED: BETAPACE 80 MG80 MG PO (10:09)
[2020-06-05] MEDS ORDERED: ASPIRIN EC81 M1 PO (10:12)
[2020-06-05] MEDS ORDERED: TRADJENTA5 MG PO (10:13)
[2020-06-05] MEDS ORDERED: PERCOCET 5-3251 TAB PO (10:14)
[2020-06-05] MEDS ORDERED: CHROMAGEN CAPLE1 TAB PO (10:20)
--- NOTE | 2020-06-05 10:58 | NUR ---
TEMPORARY PACEMAKER WIRES REMOVED PER JOSHUA LUNDY, AND DR SONI. RIGHT IJ REMOVED WHILE PT LAYING FLAT. TIP INTACT. PT TOLERATED WELL.
--- NOTE | 2020-06-05 11:58 | NUR ---
DISCHARGE PAPERWORK REVIEWED. INSTRUCTIONS GIVEN. NO QUESTIONS AT THIS TIME.
--- NOTE | 2020-06-05 17:55 | MORECARE ---
CASE MANAGEMENT DISCHARGE SUMMARY PATIENT: BRAD SUERO UNIT: [id number] ADM DATE: 05/27/20 AGE: 64 : [birth year] SEX: M ROOM/BED: [facility] AUTHOR: ERAN CRABTREE PHYSICIAN: REFERRING PHYSICIAN: LUIGI SONI MD DATE OF SERVICE: 06/05/20 Discharge Plan Patient Name: BRAD SUERO Facility: [facility]:[place] : 1955 Planned Disposition: Home Anticipated Discharge Date: Discharge Date: 06/05/2020 Expected LOS: Initial Reviewer: [id number] Initial Review Date: 05/27/2020 Generated: 06/05/20 6:54 pm Comments DCP- Discharge Planning Updated by [email or web address]: Sadaf Olmstead on 06/05/20 4:[address] Patient Name: BRAD SUERO Encounter No: [id number] : 1955 Primary Insurance: MEDICARE A & B Anticipated DC Date: Planned Disposition: Home External Planned Provider: : DCP follow-up note: Patient and family in agreement with discharge plan. No changes to plan. Case management will follow and assist as needed. 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 CM educated patient on the CM role and verbal consent given by patient to complete assessment. Patient lives at home with family. Patient is independent. At discharge patient plans to return home and feels this is a safe discharge. CM discussed availability of home health, rehab services, and medical equipment. Patient will have family to transport home. Patient denied known discharge needs at this time. CM will continue to follow and will assist as needed with dc plans/needs. Dry Wall Finisher: Sadaf Olmstead DCPIA - Discharge Planning Initial Assessment Updated by [email or web address]: Sadaf Olmstead on 06/01/20 10:57 pm * Is the patient Alert and Oriented? Yes * How many steps to enter\exit or inside your home? 1-2 * PCP [facility] * Pharmacy NEED[facility] - USES [facility] * Preadmission Environment Home with Family * ADLs Independent * Equipment None * List name and contact numbers for known caregivers / representatives who currently or will assist patient after discharge: WILL SUERO - - [phone] * Verbal permission to speak to the caregivers and representatives has been obtained from the patient. Yes * Community resources currently utilized None * Additional services required to return to the preadmission environment? No * Can the patient safely return to the preadmission environment? Yes * Has this patient been hospitalized within the prior 30 days at any hospital? No Coverage Notice Reviewer: [email or web address] - Sadaf Olmstead Notice Issued Date-Time: 06/05/2020 10:44 Notice Type: IM Discharge Notice Notice Delivered To: Patient Relationship to Patient: Self Entertainment Usher Name: Delivery Method: HAND - Hand Delivered Laura Days: Prior Verbal Notification: Recipient Understood Notice: Yes Recipient Signature: Yes Med Rec Note Co-signed by Attending: Coverage Notice Comment: Last DP export: 06/01/20 10:04 p Patient Name: BRAD SUERO Page [id number] at 1755 All edits/amendments must be made on the electronic document DICTATION DATE: 06/05/201753 AUDIO/VISUAL OPERATOR: RON 06/05/201753 RPT#: [id number] DC DATE:06/05/20 STATUS: DIS IN [facility] [address] [place] [address] END OF REPORT
== END 2020-06-05 12:18 | disposition home or self-care (01) | DRG 236 ==
LOC: D.SDCHOLD 05-27 05:11 → D.CVICU 05-27 05:11 → D.SDCHOLD 05-27 07:30 → D.CVICU 05-27 12:18
PROVIDERS: Family Medicine; Family Medicine Adult Medicine; ADMIT Thoracic Surgery (Cardiothoracic Vascular Surgery); ATTEND Thoracic Surgery (Cardiothoracic Vascular Surgery)
PROC: 021209W Bypass Coronary Artery, Three Arteries from Aorta with Autologous Venous Tissue, Open Approach (ICD-10-PCS; 2020-05-27)
PROC: 06BP4ZZ Excision of Right Saphenous Vein, Percutaneous Endoscopic Approach (ICD-10-PCS; 2020-05-27)
PROC: 5A1221Z Performance of Cardiac Output, Continuous (ICD-10-PCS; 2020-05-27)
PROC: B24BZZ4 Ultrasonography of Heart with Aorta, Transesophageal (ICD-10-PCS; 2020-05-27)
PROC: 02100Z9 Bypass Coronary Artery, One Artery from Left Internal Mammary, Open Approach (ICD-10-PCS; principal; 2020-05-27 07:30)
DX: I25.118 Atherosclerotic heart disease of native coronary artery with other forms of angina pectoris (principal); Z79.01 Long term (current) use of anticoagulants; E11.65 Type 2 diabetes mellitus with hyperglycemia; D64.9 Anemia, unspecified; I10 Essential (primary) hypertension; I48.91 Unspecified atrial fibrillation; R06.6 Hiccough

== ENCOUNTER 2020-06-28 19:35 | Emergency (ER) | payer MEDICARE ==
[~2020-06-28] VITALS: Ht 177.8 cm; Wt 92.7 kg
[~2020-06-28 19:35] MED LIST changes: +ASPIRIN EC81 M1 PO; +BACLOFEN10 MG PO; +BETAPACE 80 MG80 MG PO; +CHROMAGEN CAPLE1 TAB PO; +METOPROLOL TART25 MG PO; +PERCOCET 5-3251 TAB PO; +TRADJENTA5 MG PO
[2020-06-28 20:10] VITALS: BP 132/73; Ht 177.8 cm; Wt 92.7 kg
[2020-06-28 21:05] LABS: BASOPHILS 0.5 % (0-2); EOSINOPHILS 2.9 % (0-7); HEMATOCRIT 31.5 % (42.0-54.0); IMMATURE GRANULOCYTES 0.4 % (0-5); LYMPHOCYTES 34.8 % (15-50); MCH 28.2 pg (26.0-34.0); MCHC 31.7 g/dL (31.0-37.0); MCV 88.7 fL (80.0-100.0); MEAN PLATELET VOLUME 9.4 fL (7.4-10.4); MONOCYTES 7.8 % (2-11); NEUTROPHILS 53.6 % (40-80); PLATELET COUNT 216 10x3/uL (130-400); RBC 3.55 10x6/uL (4.20-6.10); WBC 5.5 10x3/uL (4.8-10.8)
[2020-06-28 21:13] LABS: APTT 25.1 SECONDS (22.8-39.4); INR 1.06 (0.85-1.17); PROTIME 13.7 SECONDS (11.6-15.0)
[2020-06-28 21:15] LABS: CALC OSMOLALITY 275 mosm/kg (275-300); CARBON DIOXIDE 27.9 mmol/L (21.0-32.0); CHLORIDE - SERUM 103 mmol/L (98-107); CREATININE - SERUM 1.2 mg/dL (0.6-1.3); POTASSIUM - SERUM 4.5 mmol/L (3.5-5.1); SODIUM 137 mmol/L (136-145); UREA NITROGEN 12 mg/dL (7-18); eGFR NON AFRICAN AMERICAN 64 mL/min (90-120)
[2020-06-28 21:19] LABS: GLUCOSE 126 mg/dL (74-106)
[2020-06-28 21:28] LABS: ALBUMIN 3.2 g/dL (3.4-5.0); ALKALINE PHOSPHATASE 87 U/L (30-120); ALT (SGPT) 27 U/L (10-68); BILIRUBIN - TOTAL 0.21 mg/dL (0.2-1.3); CKMB 0.6 U/L (0.0-3.6); CREATINE KINASE 94 UL (21-232); MAGNESIUM - SERUM 1.6 mg/dL (1.8-2.4); PROTEIN - SERUM 7.7 g/dL (6.4-8.2); TROPONIN-I < 0.017 ng/mL (0.000-0.060)
== END 2020-06-28 21:54 | disposition left against medical advice (07) ==
LOC: D.ER 19:35
PROVIDERS: Family Medicine
DX: R07.9 Chest pain, unspecified (principal)

== ENCOUNTER → 2021-02-14 13:58 | Outpatient (CLI) | payer MEDICARE ==
[2020-06-28 20:10] VITALS: BMI 29.3
== END | disposition home or self-care (01) ==
LOC: D.CT 13:30
PROVIDERS: ATTEND Family Medicine Adult Medicine
DX: I70.202 Unspecified atherosclerosis of native arteries of extremities, left leg (principal)

== ENCOUNTER 2021-03-14 05:26 | Day surgery (SDC) | payer MEDICARE ==
[~2021-03-14] VITALS: Ht 177.8 cm; Wt 88.6 kg
--- NOTE | ~2021-03-14 | HEMODYNAMI ---
PATIENT:BRDA SUERO MEDICAL RECORD: [id number] : 51 LOCATION:[facility] ADMISSION DATE: 03/14/21 Generatedon:19:16 Patient name: BRAD SUERO Patient #: [id number] SSN: : 1955 Date of study: 03/14/2021 Page: Of Hemodynamic Procedure Report Patient Data Patient Demographics Procedure consent was obtained First Name: BRAD Gender: Male Last Name: PIO : 1955 Patient #: [id number] Age: 65 year(s) Race: Black Additional ID: [id number] Contact details Address: [place] [address] State: [place] City: [place] Zip code: [address] Past Medical History Allergies Allergen Reaction Date Comments Reported Other allergy 03/14/2021 latex Admission Admission Data Admission Date: 03/14/2021 Admission Time: 5:26 Procedure Procedure Types Cath Procedure Peripheral Cath Diagnostic Procedure Abd/Extremity Extremities Left Lower Ext Arterio Procedure Description Procedure Date Procedure Date: 03/14/2021 Procedure Start Time: 8:27 Procedure End Time: 9:15 Procedure Staff Name Function Wolf Rebollar MD Performing Physician STELLA BARDALES RT Monitor Alton Arango RT Scrub Ellen Jones RN Nurse Procedure Data Cath Procedure Fluoroscopy Diagnostic fluoroscopy Total fluoroscopy Time: 8.8 time: 8.8 min min Diagnostic fluoroscopy Total fluoroscopy dose: 55 dose: 55 mGy mGy Contrast Material Contrast Material Type Amount (ml) Isovue 300 40 Entry Location Entry Primary Successful Side Size Upsize Upsize Entry Closure Succe ssful Closure Location (Fr) 1 (Fr) 2 (Fr) Remarks Device Remarks Femoral Right 5 Fr 6 Fr Perclose artery Long ProGlide Diagnostic catheters Device Type Used For End Catheter Placement DIAGNOSTIC IMT 5Fr Catheter ([id number]) Procedure Medications Medication Administration Route Dosage Lidocaine 1% added to field 20 Heparin Flush Bag added to field 2 bags (1000units/500ml NS) Versed I.V. 1 mg Fentanyl I.V. 50 mcg Heparin Bolus I.V. 5000 units Nitroglycerin IC/IA I.A. 300 mcg Hemodynamics Rest Pre Cath Intra NCS Post Cath Vital Signs Time Heart Resp SPO2 etCO2 NIBP (mmHg) Rhythm Pain Sedation Rate (ipm) (%) (mmHg) Status Level (bpm) 8:29:11 85 6 100 9.7 132/89(114) NSR 0 (11) 10(A) , No pain 8:33:22 82 11 100 15 126/71(112) NSR 0 (11) 8(A) , No pain 8:37:30 76 14 100 13.5 110/66(91) NSR 0 (11) 8(A) , No pain 8:41:38 73 10 100 14.2 113/66(88) NSR 0 (11) 8(A) , No pain 8:45:48 73 9 100 12 114/64(92) NSR 0 (11) 8(A) , No pain 8:49:56 72 11 100 11.2 112/67(91) NSR 0 (11) 8(A) , No pain 8:54:04 75 11 100 12 103/69(83) NSR 0 (11) 8(A) , No pain 8:58:07 75 12 100 11.2 105/66(78) NSR 0 (11) 8(A) , No pain 9:02:13 71 5 100 11.2 110/64(83) NSR 0 (11) 8(A) , No pain 9:06:21 70 12 100 12 100/68(82) NSR 0 (11) 8(A) , No pain 9:10:25 77 12 100 11.2 107/65(84) NSR 0 (11) 8(A) , No pain 9:14:29 70 11 100 12 111/70(81) NSR 0 (11) 8(A) , No pain Medications Time Medication Route Dose Verified Delivered Reason Notes Effect iveness by by 8:28:45 Lidocaine 1% added 20ml Wolf Bloom used for to vial Keturah Rebollar procedure field MD RENDON 8:28:56 Heparin Flush added 2 Wolf Bloom used for Bag to bags Keturah Rebollar procedure (1000units/500ml field MD RENDON NS) 8:29:20 Versed I.V. 1 mg Wolf Hughes for Keturah Jones sedation RN 8:29:33 Fentanyl I.V. 50 Wolf Hughes for mcg Keturah Jones sedation RN 8:31:58 Heparin Bolus I.V. 5000 Wolf Hughes used for units Keturah Jones procedure RN 8:51:28 Nitroglycerin I.A. 300 Wolf Bloom used for IC/IA mcg Keturah pitts MD, MD Procedure Log Time Note 7:53:34 Alton Arango RT (R) (CV) sent for patient. Start room use. 7:53:35 Time tracking: Regular hours (M-F 7:00 - 5:00) 7:53:39 Plan of Care:Hemodynamics will remain stable., Cardiac rhythm will remain stable., Comfort level will be maintained., Respiratory function will remain adequate., Patient/ family verbilizes understanding of procedure., Procedure tolerated without complication., Recovers from procedure without complications.. 7:53:44 Patient received from Outpatients to IR Alert and oriented. Tansferred to table in Supine position. 7:53:46 Signed procedure consent form obtained from patient. 7:53:47 Warm blankets applied, and pollo hugger turned on for patient comfort. 7:53:47 Correct patient and procedure confirmed by team. 7:53:47 ECG and BP/O2 sat monitors applied to patient. 7:53:48 7:53:53 H&P Date Dictated: 03/14/2021 H&P Addendum completed by physician on day of procedure. (MUST COMPLETE FOR ALL OUTPATIENTS). 7:53:54 Pre-procedure instructions explained to patient. 7:53:55 Pre-op teaching completed and patient verbalized understanding. 7:54:41 Patient allergic to Other allergylatex 7:54:43 Is patient on blood thinner?Yes 7:54:46 ACC The patient was administered the following blood thiners within the last 24 hours: ACCAspirin 7:54:49 Patient diabetic? Yes. 7:54:51 If diabetic: On Metformin? Yes 7:54:56 If on Metformin: Last Dose? 03/13/2021 7:54:58 ----Pre-sedation anethsthesia assessment.---- 7:55:01 Previous problem with sedation/anesthesia? No ? 7:55:03 Snore? Yes 7:55:04 Sleep apnea? No 7:55:06 Deviated septum? No 7:55:07 Opens mouth fully? Yes 7:55:08 Sticks out tongue? Yes 7:55:11 Airway obstruction? No ? 7:55:14 Dentures? Yes ? 7:55:16 7:55:19 Pre procedure: right dorsailis pedis pulse Doppler 7:55:22 Pre procedure: left dorsailis pedis pulse Doppler 7:55:24 Pre procedure: right posterior tibial pulse Doppler 7:55:28 Pre procedure: left posterior tibial pulse 0-Absent 7:55:48 IV patent on arrival in left forearm with 0.45%NaCl at KVO. 7:55:52 Right groin area was prepped with chlora-prep and draped in sterile fashion 7:55:53 Alarms reviewed by Andrea Pedro 7:55:53 Sharps counted by scrub and verified by Dora 7:55:54 7:55:58 Use device set IR Diagnostic 7:55:59 Bag Decanter () opened to sterile field. 7:55:59 Sterile Angiographic Pack opened to sterile field. 7:56:00 Tegaderm 4 x 4 (1626W) opened to sterile field. 7:56:42 BENTSON 145cm wire ([id number]) opened to sterile field. 7:56:42 MICROPUNCTURE 4FR Cook ([id number]) opened to sterile field. 7:56:43 SHEATH 5FR Flint (NFG504) opened to sterile field. 7:56:43 CXI SUPPORT .035 135 CM STR catheter ([id number]) opened to sterile field. 7:56:44 ROMERO 260 wire (Q54092) opened to sterile field. 7:56:44 ROADRUNNER .035 260 glide wire (O28916) opened to sterile field. 7:56:51 8:04:42 A DIAGNOSTIC IMT 5Fr Catheter ([id number]) was opened to sterile field. 8:04:43 CHOICE PT Extra Support J 300cm guide wire ([id number]) opened to sterile field. 8:24:50 Physician arrived 8:24:50 Physician arrived 8:24:51 --------ALL STOP TIME OUT------ 8:24:51 Final Timeout: patient, procedure, and site verified with staff and physician. All members of the team are in agreement. 8:24:53 Right groin site verified by team. 8:24:58 3a) 45-59 Moderately reduced kidney function. 8:25:21 Maximum allowable contrast dose (3.7 X eGFR X 0.75)161 ml. 8:25:25 Sedation plan: IV Moderate Sedation Medication:Versed, Fentanyl 8:25:33 Procedure started. 8:25:34 Full Disclosure recording started 8:27:35 Local anesthetic to right femoral artery with Lidocaine 1% by Wolf Rebollar MD.INITIAL ACCESS ONLY 8:27:36 Access obtained with 4Fr micropunture. 8:27:45 A 5 Fr sheath was inserted into the Right Femoral artery 8:28:09 Vital chart was started 8:28:45 Lidocaine 1% 20ml vial added to field was administered by Wolf Rebollar MD; used for procedure; Verbal order read back and verified. 8:28:56 Heparin Flush Bag (1000units/500ml NS) 2 bags added to field was administered by Wolf Rebollar MD; used for procedure; Verbal order read back and verified. 8:29:20 Versed 1 mg I.V. was administered by Ellen Jones RN; for sedation; Verbal order read back and verified. 8:29:33 Fentanyl 50 mcg I.V. was administered by Ellen Jones RN; for sedation; Verbal order read back and verified. 8:31:58 Heparin Bolus 5000 units I.V. was administered by Ellen Jnoes RN; used for procedure; Verbal order read back and verified. 8:34:54 SHEATH 6FR Destination (RSR01) opened to sterile field. 8:35:03 Sheath upsized to a 6 Fr Long. 8:36:06 INFLATOR BasixTOUCH (HY3672) opened to sterile field. 8:43:29 TURBOH13th LabK SS-C Atherectomy catheter (THSSSC)r opened to sterile field. 8:51:28 Nitroglycerin IC/IA 300 mcg I.A. was administered by Wolf Rebollar MD; used for procedure; Verbal order read back and verified. 8:55:01 Inflate balloon Inflation number: 1 A NANOCROSS 2.5 X 120 BALLOON ([id number]) was prepped and advanced across the Mid Peroneal, Left , then inflated to 6 MARYJANE . 9:05:05 Inflate balloon Inflation number: 2 A CHOCOLATE 3.0 x 80 x 150 balloon ([id number]) was prepped and advanced across the Mid Peroneal, Left , then inflated to 9 MARYJANE . 9:09:32 PERCLOSE Proglide 6FR ( [id number]) opened to sterile field. 9:13:38 Fluoroscopy time 08.80 minutes. 9:13:41 Fluoroscopy dose: 55 mGy 9:13:41 Flurop Dose total: 55 9:13:46 Contrast amount:Isovue 300 40ml. 9:13:48 Maximum allowable dose exceeded? No. 9:13:49 Sharps counted by scrub and verified by R.N. 9:14:04 Sheath removed intact; hemostasis achieved with Perclose ProGlide to the Right Femoral artery. 9:14:12 Procedure ended.(Physican Out) 9:14:34 Post-op/insertion site Right Femoral artery dressed using a 4 x 4 and Tegaderm. 9:14:42 Post procedure instruction explained to patient.Patient verbalizes understanding. 9:14:43 Procedure and supply charges have been captured, reviewed, submitted and are correct. 9:15:50 Vital chart was stopped 9:15:53 Procedure ended. 9:15:53 Full Disclosure recording stopped 9:16:01 Patient transfered to Outpatients with Stretcher. Intervention Summary Intervention Notes Time ActionType Lesion and Equipment Used Action# Pressure Duration Attributes 8:55:01 Inflate Mid NANOCROSS 2.5 X 1 0 00:00 balloon Peroneal, 120 BALLOON Left ([id number]) 9:05:05 Inflate Mid CHOCOLATE 3.0 x 2 0 00:00 balloon Peroneal, 80 x 150 balloon Left ([id number]) Device Usage Item Name Manufacture Quantity Catalog Number [facility] Lot# / Charge Number Stock Stock Serial# Code Bag Decanter Microtek 1 [id number] 65578 [id number] 5 () [employer] Sterile Cardinal 1 [id number] 869492 270093 5 Angiographic Pack Health Tegaderm 4 x 4 3M 1 1626W 432641 846431 027988 5 (1626W) ROMERO 260 wire Cook Medical 2 J59797 176267 373512 318195 5 (R24495) BENTSON 145cm Cook Medical 1 U68619 466924 629240 5 wire ([id number]) MICROPUNCTURE 4FR Cook Medical 1 N20000 846340 610413 001012 5 Cook (K90962) SHEATH 5FR Terumo 1 ABV782 172455 554881 981247 5 Flint (VYJ044) CXI SUPPORT .035 Space [employer] Medical 1 M93815 894733 451602 424291 5 135 CM STR catheter (S60784) ROADRUNNER .035 Cook Medical 1 X34216 597370 651333 119561 5 260 glide wire (H98651) DIAGNOSTIC IMT Sabael 1 [id number] 243683 532206 04705 5 5Fr Catheter Scientific ([id number]) CHOICE PT Extra Sabael 1 [id number] 847739 434137 529203 5 Support J 300cm Scientific guide wire ([id number]) ACIST Syringe Acist 1 17465 744105 541160 767496 20 (98225) Medical Systems Inc ACIST Hand Acist 1 06404 922642 076758 303572 5 Control (76686) Medical Systems Inc ACIST Manifold Acist 1 27218 854637 401485 798947 5 (78937) Medical Systems Inc SHEATH 6FR Terumo 1 RSR01 605965 76192 897462 5 Destination (RSR01) INFLATOR Merit 1 DD5347 672647 452319 167186 5 Known ([id number]) TURBOH[place]K SS-C Medtronic 1 THS-SS-C 740535 910326 5 Atherectomy catheter (THSSSC)r NANOCROSS 2.5 X Medtronic 1 [id number] 465403 960629 836814 1 120 BALLOON ([id number] PERCLOSE Proglide [place] 1 25755-051 262659 317849 267803 5 6FR ( [id number]) Vascular CHOCOLATE 3.0 x Medtronic 1 [id number] 674682 330307 361077 5 80 x 150 balloon O ([id number]) TW Signature Audit [place] Stage Time Signature Unsigned Intra-Procedure 03/14/2021 STELLA BARDALES RT 9:16:27 AM (R) [address] [place] [address]
[2021-03-14 05:51] LABS: BASOPHILS 0.4 % (0-2); EOSINOPHILS 1.7 % (0-7); HEMATOCRIT 34.1 % (42.0-54.0); HEMOGLOBIN 11.5 g/dL (13.5-17.5); LYMPHOCYTES 42.8 % (15-50); MCHC 33.7 g/dL (31.0-37.0); MCV 86.1 fL (80.0-100.0); MEAN PLATELET VOLUME 9.9 fL (7.4-10.4); MONOCYTES 8.7 % (2-11); NEUTROPHILS 46.4 % (40-80); PLATELET COUNT 229 10x3/uL (130-400); RBC 3.96 10x6/uL (4.20-6.10); RDW 15.1 % (11.5-14.5); WBC 5.4 10x3/uL (4.8-10.8)
[2021-03-14 06:06] LABS: APTT 38.7 SECONDS (22.8-39.4); INR 1.14 (0.85-1.17); PROTIME 13.5 SECONDS (11.6-15.0)
[2021-03-14 06:17] LABS: ANION GAP 12.4 mmol/L (8-16); CALCIUM 9.6 mg/dL (8.5-10.1); CREATININE - SERUM 1.3 mg/dL (0.6-1.3); POTASSIUM - SERUM 4.4 mmol/L (3.5-5.1)
[2021-03-14] MEDS ORDERED: FERROUS SULFAT325 MG PO (06:39)
[2021-03-14 06:44] VITALS: BP 125/75; Ht 177.8 cm; Wt 88.6 kg
--- NOTE | 2021-03-14 12:20 | NUR ---
DC TEACHING TO PT AND . VERBALIZES UNDERSTANDING. 1330 PIV DC'D WITH CATHETER INTACT. HELPING PT TO DRESS. 1345 DC'D VIA WC ACCOMPANIED BY THIS NURSE TO POV WITH DRIVING AND WITH ALL BELONGINGS AND DC PACKET.
== END 2021-03-14 13:45 | disposition home or self-care (01) ==
LOC: D.SP 05:26 → D.RAD 08:00 → D.SP 13:45
PROVIDERS: ATTEND Radiology Diagnostic Radiology
DX: R93.89 Abnormal findings on diagnostic imaging of other specified body structures (principal); I70.212 Atherosclerosis of native arteries of extremities with intermittent claudication, left leg

== ENCOUNTER 2021-03-24 05:28 | Day surgery (SDC) | payer MEDICARE ==
--- NOTE | 2021-03-23 09:49 | NUR ---
ATTEMPTED TO CONFIRM PT APPT FOR 03/24/21 - NO ANSWER
[~2021-03-24] VITALS: Ht 177.8 cm; Wt 88.6 kg
--- NOTE | ~2021-03-24 | HEMODYNAMI ---
PATIENT:BRAD SUERO MEDICAL RECORD: [id number] : 51 LOCATION:[facility] ADMISSION DATE: 03/24/21 Generatedon:19:40 Patient name: BRAD SUERO Patient #: [id number] SSN: : 1955 Date of study: 03/24/2021 Page: Of Hemodynamic Procedure Report Patient Data Patient Demographics Procedure consent was obtained First Name: BRAD Gender: Male Last Name: PIO : 1955 Patient #: [id number] Age: 65 year(s) Race: Black Additional ID: [id number] Contact details Address: [place] [address] State: [place] City: [place] Zip code: [address] Past Medical History Allergies Allergen Reaction Date Comments Reported Other allergy 03/14/2021 latex Other allergy 03/24/2021 latex Admission Admission Data Admission Date: 03/24/2021 Admission Time: 5:28 Procedure Procedure Types Cath Procedure Peripheral Cath Diagnostic Procedure Abd/Extremity Extremities Right Lower Ext Arterio Procedure Description Procedure Date Procedure Date: 03/24/2021 Procedure Start Time: 8:42 Procedure End Time: 9:39 Procedure Staff Name Function Wolf Rebollar MD Performing Physician STELLA BARDALES RT Monitor Alton Arango RT Scrub Ellen Jones RN Nurse Felicitas Brambila RN Nurse Procedure Data Cath Procedure Fluoroscopy Diagnostic fluoroscopy Total fluoroscopy Time: time: 15.1 min 15.1 min Diagnostic fluoroscopy Total fluoroscopy dose: 119 dose: 119 mGy mGy Contrast Material Contrast Material Type Amount (ml) Isovue 300 45 Entry Location Entry Primary Successful Side Size Upsize Upsize Entry Closure Succe ssful Closure Location (Fr) 1 (Fr) 2 (Fr) Remarks Device Remarks Femoral Left 5 Fr 6 Fr Perclose artery Long ProGlide Procedure Medications Medication Administration Route Dosage Heparin Bolus I.V. 5000 units Heparin Flush Bag added to field 2 bags (1000units/500ml NS) Lidocaine 1% added to field 20 Versed I.V. 1 mg Fentanyl I.V. 50 mcg Nitroglycerin IC/IA I.A. 250 mcg Hemodynamics Rest Heart Rate: 78 (bpm) Snapshots Pre Cath Intra NCS Post Cath Vital Signs Time Heart Resp SPO2 etCO2 NIBP (mmHg) Rhythm Pain Sedation Rate (ipm) (%) (mmHg) Status Level (bpm) 8:21:23 71 39 36.3 131/85(114) NSR 0 (11) 10(A) , No pain 8:25:31 75 12 37 142/87(124) NSR 0 (11) 10(A) , No pain 8:29:41 73 16 37.8 152/94(134) NSR 0 (11) 10(A) , No pain 8:33:57 81 4 37.8 151/88(134) NSR 0 (11) 10(A) , No pain 8:38:11 77 8 38.5 137/93(122) NSR 0 (11) 10(A) , No pain 8:42:22 76 11 84 35.5 130/84(110) NSR 0 (11) 8(A) , No pain 8:46:35 70 9 100 31 124/76(100) NSR 0 (11) 8(A) , No pain 8:50:40 72 15 100 36.2 131/85(115) NSR 0 (11) 8(A) , No pain 8:54:52 69 11 100 24.2 129/78(109) NSR 0 (11) 8(A) , No pain 8:59:04 69 9 100 34.7 125/75(106) NSR 0 (11) 8(A) , No pain 9:03:14 72 12 100 30.2 122/74(93) NSR 0 (11) 8(A) , No pain 9:07:22 62 24 100 33.2 119/74(102) NSR 0 (11) 8(A) , No pain 9:11:32 67 11 100 27.9 114/72(96) NSR 0 (11) 8(A) , No pain 9:15:38 63 11 100 31.7 119/76(89) NSR 0 (11) 8(A) , No pain 9:19:45 63 15 100 21.1 120/76(102) NSR 0 (11) 8(A) , No pain 9:23:53 63 12 100 24.2 120/74(104) NSR 0 (11) 8(A) , No pain 9:28:03 66 23 100 33.2 119/70(92) NSR 0 (11) 10(A) , No pain 9:32:11 67 11 100 29.5 120/77(92) NSR 0 (11) 10(A) , No pain 9:36:14 60 12 100 29.5 128/85(98) NSR 0 (11) 10(A) , No pain Medications Time Medication Route Dose Verified Delivered Reason Notes Effec tiveness by by 8:30:48 Heparin Flush added 2 Wolf Bloom used for Bag to bags Keturah Rebollar procedure (1000units/500ml field MD RENDON NS) 8:30:51 Lidocaine 1% added 20ml Wolf Bloom for local to vial Keturah Rebollar anesthetic field MD RENDON 8:36:28 Versed I.V. 1 mg Wolf Hughes for Keturah Jones sedation RN 8:36:45 Fentanyl I.V. 50 Wolf Hughes for mcg Keturah Jones sedation RN 8:40:31 Heparin Bolus I.V. 5000 Wolf Hughes Per units Keturah Jones physician RN 8:59:29 Nitroglycerin I.A. 250 Wolf Bloom used for IC/IA mcg Keturah Rebollar procedure MD RENDON Procedure Log Time Note 7:50:09 Use device set IR Diagnostic 7:50:10 Bag Decanter (2001S) opened to sterile field. 7:50:11 Sterile Angiographic Pack opened to sterile field. 7:50:11 Tegaderm 4 x 4 (1626W) opened to sterile field. 7:50:53 ROADRUNNER .035 260 glide wire ([id number]) opened to sterile field. 7:50:54 CHOICE PT Extra Support J 300cm guide wire ([id number]) opened to sterile field. 7:50:54 ROMERO 260 wire (D11363) opened to sterile field. 7:50:55 BENTSON 145cm wire (H40624) opened to sterile field. 7:50:56 MICROPUNCTURE 4FR Cook (M97367) opened to sterile field. 7:50:56 SHEATH 5FR [place] (HSU537) opened to sterile field. 8:08:49 Ellen Jones RN sent for patient. Start room use. 8:08:50 Time tracking: Regular hours (M-F 7:00 - 5:00) 8:08:58 Plan of Care:Hemodynamics will remain stable., Cardiac rhythm will remain stable., Comfort level will be maintained., Respiratory function will remain adequate., Patient/ family verbilizes understanding of procedure., Procedure tolerated without complication., Recovers from procedure without complications.. 8:09:24 Patient received from Outpatients to IR Alert and oriented. Tansferred to table in Supine position. 8:09:26 Signed procedure consent form obtained from patient. 8:09:27 Warm blankets applied, and pollo hugger turned on for patient comfort. 8:09:28 Correct patient and procedure confirmed by team. 8:09:29 ECG and BP/O2 sat monitors applied to patient. 8:14:33 8:14:37 H&P Date Dictated: 03/24/2021 H&P Addendum completed by physician on day of procedure. (MUST COMPLETE FOR ALL OUTPATIENTS). 8:14:39 Pre-procedure instructions explained to patient. 8:14:39 Pre-op teaching completed and patient verbalized understanding. 8:14:42 Patient NPO since Midnight. 8:14:53 Patient allergic to Other allergylatex 8:14:56 Is the patient allergic to Iodine/contrast media? No. 8:16:10 Is patient on blood thinner?Yes 8:16:13 ACC The patient was administered the following blood thiners within the last 24 hours: ACCPlavix 8:16:15 Patient diabetic? Yes. 8:16:16 If diabetic: On Metformin? Yes 8:16:22 If on Metformin: Last Dose? 03/22/2021 8:16:23 8:16:25 ----Pre-sedation anethsthesia assessment.---- 8:16:44 Previous problem with sedation/anesthesia? No ? 8:16:46 Snore? No 8:16:47 Sleep apnea? No 8:16:48 Deviated septum? No 8:16:49 Opens mouth fully? No 8:16:55 Sticks out tongue? Yes 8:16:57 Airway obstruction? No ? 8:17:00 Dentures? Yes ? 8:17:02 8:19:46 Pre procedure: right dorsailis pedis pulse Doppler 8:19:48 Pre procedure: left dorsailis pedis pulse Doppler 8:19:50 Pre procedure: right posterior tibial pulse Doppler 8:19:52 Pre procedure: left posterior tibial pulse Doppler 8:20:04 IV patent on arrival in left forearm with 0.45%NaCl at KVO. 8:20:13 Left groin area was prepped with chlora-prep and draped in sterile fashion 8:20:15 Alarms reviewed by Andrea Pedro 8:20:15 Sharps counted by scrub and verified by Dora 8:20:16 8:20:19 Vital chart was started 8:20:29 Baseline sample Acquired. 8:20:34 8:30:32 Physician paged 8:30:33 Physician responded to page. 8:30:48 Heparin Flush Bag (1000units/500ml NS) 2 bags added to field was administered by Wolf Rebollar MD; used for procedure; Verbal order read back and verified. 8:30:51 Lidocaine 1% 20ml vial added to field was administered by Wolf Rebollar MD; for local anesthetic; Verbal order read back and verified. 8:34:08 Physician arrived 8:34:10 --------ALL STOP TIME OUT------ 8:34:12 Final Timeout: patient, procedure, and site verified with staff and physician. All members of the team are in agreement. 8:34:14 Left groin site verified by team. 8:34:27 2) 60-89 Mildly reduced kidney function, and other findings (as for stage 1) point to kidney disease. 8:34:46 Maximum allowable contrast dose (3.7 X eGFR X 0.75)197.02 ml. 8:34:52 Sedation plan: IV Moderate Sedation Medication:Versed, Fentanyl 8:36:28 Versed 1 mg I.V. was administered by Ellen Jones RN; for sedation; Verbal order read back and verified. 8:36:45 Fentanyl 50 mcg I.V. was administered by Ellen Jones RN; for sedation; Verbal order read back and verified. 8:40:31 Heparin Bolus 5000 units I.V. was administered by Ellen Jones RN; Per physician; Verbal order read back and verified. 8:40:57 Procedure started. 8:40:57 Full Disclosure recording started 8:42:19 SHEATH 6FR Destination (RSR01) opened to sterile field. 8:42:27 Local anesthetic to left femerol artery with Lidocaine 1% by Wolf Rebollar MD.INITIAL ACCESS ONLY 8:42:28 Access obtained with 4Fr micropunture. 8:42:38 A 5 Fr sheath was inserted into the Left Femoral artery 8:42:46 Arterial access obtained using ultrasound guidance. 8:46:29 CXI SUPPORT .035 135 CM STR catheter ([id number]) opened to sterile field. 8:48:39 Sheath upsized to a 6 Fr Long. 8:56:33 INFLATOR BasixTOUCH (RF6050) opened to sterile field. 8:58:44 [place] 1 Small Atherectomy catheter (H1S) opened to sterile field. 8:59:29 Nitroglycerin IC/IA 250 mcg I.A. was administered by Wolf Rebollar MD; used for procedure; Verbal order read back and verified. 9:12:41 Inflate balloon Inflation number: 1 A NANOCROSS ELITE 3.5MM-3MM X 210 X 150 ([id number]) was prepped and advanced across the Mid Peroneal, Left , then inflated. 9:31:11 PERCLOSE Proglide 6FR ( [id number]) opened to sterile field. 9:32:33 Sheath removed intact; hemostasis achieved with Perclose ProGlide to the Left Femoral artery. 9:35:06 Procedure ended.(Physican Out) 9:35:13 Fluoroscopy time 15.10 minutes. 9:35:17 Fluoroscopy dose: 119 mGy 9:35:17 Flurop Dose total: 119 9:35:21 Contrast amount:Isovue 300 45ml. 9:35:24 Maximum allowable dose exceeded? No. 9:35:25 Sharps counted by scrub and verified by R.N. 9:35:29 Post procedure: right dorsailis pedis pulse Doppler. 9:35:31 Post procedure: left dorsailis pedis pulse Doppler. 9:35:33 Post procedure: right posterior tibial pulse Doppler. 9:35:36 Post procedure: left posterior tibial pulse Doppler. 9:35:40 Post procedure instruction explained to patient.Patient verbalizes understanding. 9:35:42 Procedure and supply charges have been captured, reviewed, submitted and are correct. 9:36:33 See physician's report for complete and final results. 9:39:46 Procedure ended. 9:40:10 Vital chart was stopped Intervention Summary Intervention Notes Time ActionType Lesion and Equipment Used Action# Pressure Duration Attributes 9:12:41 Inflate Mid NANOCROSS ELITE 1 0 00:00 balloon Peroneal, 3.5MM-3MM X 210 Left X 150 ([id number]) Device Usage Item Name Manufacture Quantity Catalog Number Hospital Part Current Minimal Lot# / Charge Number Stock Stock Serial# Code Bag Decanter Microtek 1 [id number] 5 () Medical Inc. Sterile Cardinal 1 [id number] 684473 277918 5 Angiographic Health Pack Tegaderm 4 x 4 3M 1 1626W 215701 849811 970645 5 (1626W) ROADRUNNER .035 Cook [facility] 1 O96095 302603 732890 055405 5 260 glide wire (I94814) CHOICE PT Extra Roslyn 1 [id number] 288237 20190520 490537 5 Support J 300cm Scientific guide wire ([id number]) ROMERO 260 wire [employer] 1 H55650 842491 036216 834364 5 (G87247) BENTSON 145cm [employer] 1 I61533 249732 145953 5 wire (G10850) MICROPUNCTURE Silicon Mitus [facility] 1 K24545 521582 211254 637561 5 4FR Cook (P31897) SHEATH 5FR Terumo 1 PUS992 076220 580843 064235 5 [place] (HDG716) ACIST Syringe Acist 1 77711 621797 779605 143433 20 (03233) Medical Systems Inc ACIST Hand Acist 1 38453 368573 234487 116472 5 Control (88183) [employer] Inc ACIST Manifold Acist 1 81594 111067 676793 086356 5 (95085) Medical Systems Inc SHEATH 6FR Terumo 1 RSR01 491071 84779 496963 5 Destination (RSR01) CXI SUPPORT [employer] (T.O.H.L.) 1 J00346 882403 053736 785550 5 .035 135 CM STR catheter (Z54500) INFLATOR Merit 1 MB5134 629683 661505 281955 5 [employer] (HF0539) T[place] 1 Medtronic 1 H1-S 626082 6270635 312524 5 [id number] Small Atherectomy catheter (H1S) NANOCROSS ELITE Medtronic 1 [id number] 922131 8592517 1 3.5MM-3.MM X 210 X 150 ([id number] PERCLOSE [place] 1 88495-979 424938 190156 599898 5 Proglide 6FR ( Vascular 34992838) Signature Audit [place] Stage Time Signature Unsigned Intra-Procedure 03/24/2021 STELLA BARDALES RT 9:40:03 AM (R) [facility] [address] [place] [address]
[~2021-03-24 05:28] MED LIST changes: +FERROUS SULFAT325 MG PO
[2021-03-24 05:48] LABS: BASOPHILS 0.6 % (0-2); EOSINOPHILS 1.4 % (0-7); HEMATOCRIT 33.1 % (42.0-54.0); HEMOGLOBIN 11.1 g/dL (13.5-17.5); LYMPHOCYTE ABS# 2.29 10x3/uL (1.32-3.57); LYMPHOCYTES 44.9 % (15-50); MCH 29.2 pg (26.0-34.0); MCHC 33.5 g/dL (31.0-37.0); MCV 87.1 fL (80.0-100.0); MEAN PLATELET VOLUME 9.7 fL (7.4-10.4); NEUTROPHILS 43.1 % (40-80); PLATELET COUNT 220 10x3/uL (130-400); RDW 14.8 % (11.5-14.5); WBC 5.1 10x3/uL (4.8-10.8)
[2021-03-24 05:58] LABS: APTT 36.6 SECONDS (22.8-39.4); INR 1.13 (0.85-1.17); PROTIME 13.4 SECONDS (11.6-15.0)
[2021-03-24 06:09] LABS: ANION GAP 10.7 mmol/L (8-16); CALCIUM 9.6 mg/dL (8.5-10.1); CARBON DIOXIDE 28.7 mmol/L (21.0-32.0); CREATININE - SERUM 1.3 mg/dL (0.6-1.3); POTASSIUM - SERUM 4.4 mmol/L (3.5-5.1)
[2021-03-24 06:52] VITALS: BP 119/71; Ht 177.8 cm; Wt 88.6 kg
[2021-03-24] MEDS ORDERED: PLAVIX75 MG PO (06:55)
--- NOTE | 2021-03-24 11:20 | NUR ---
DRESSING SATURATED WITH BLOOD DRAINING DOWN INNER LEFT THIGH. SEJAL WITH IR NOTIFIED AND ARRIVED AT BEDSIDE TO ASSESS PT. SEJAL CHANGED DRESSING, PRESSURE HELD TO SITE, STATED SHE WAS CALLING DR. CHACKO ABOUT GETTING SANDBAG. 1135 SANDBAG APPLIED BY SEJAL. 1150 PT VOIDED IN URINAL, YELLOW, MODERATE AMOUNT. 1315 DR FROM IR AT BEDSIDE, STATED PT COULD GO HOME AT 1545 1340 SANDBAG REMOVED BY MIRTA FROM IR 1500 DOPPLER TO RT DORSALIS PEDIS- WEAK/REGULAR, POSTERIOR TIBIA-WHOOSHING SOUND, FOOT WARM TO TOUCH LT DORSALIS PEDIS- PALPABLE PRESENT WITH DOPPLER, POSTERIOR TIBIA-REGULAR/WEAK 1510 POST OP INSTRUCTIONS GIVEN. VERBALIZED UNDERSTANDING 1530 RAISED HOB TO 30 DEGREES, TOLERATED WELL, NO ACTIVE BLEEDING TO SITE, AREA SOFT. 1553 ASSISTED PT TO BATHROOM TO VOID 1601 DC PIV WITH CATHETER INTACT, PRESSURE HELD, DRESSING APPLIED. THIS NURSE AND ASSISTED PT TO GET DRESSED. 1610 PT DC'D VIA WC BY THIS NURSE TO POV WITH ALL BELONGINGS AND DC PACKET. DRIVING.
--- NOTE | 2021-03-24 12:53 | NUR ---
1245 PT WAS MEDICATED WITH NORCO FOR C/O BACK PAIN THAT HE RATES A 10 OUT OF 10. PT IS WANTING TO REPOSITION OR GET A TOWEL UNDER THE LOWER PART OF HIS BACK. I EXPLAINED TO PATIENT THIS COULD CAUSE HIM TO BLEED AGAIN BUT I WOULD NOTIFY SPECIALS AND ASK IF THERE IS ANYTHING OTHER THAN PAIN MEDICATION TO HELP ALLEVIATE HIS LOWER BACK PAIN. SPOKE WITH RADHA WHO WILL ASK MIRTA ABOUT ANY OPTIONS.
--- NOTE | 2021-03-24 13:12 | NUR ---
1305 RADHA SIN RN AT PT'S BEDSIDE AND SHE RAISED THE HOB A FEW DEGREES. PT STATES THAT IMMEDIATELY FELT RELIEF IN HIS LOWER BACK 1310 PT RATES HIS BACK PAIN A 4 OUT OF 10. 1315 RADIOLOGIST AT BEDSIDE.
== END 2021-03-24 16:10 | disposition home or self-care (01) ==
LOC: D.SP 05:28 → D.RAD 08:00 → D.SP 16:10
PROVIDERS: ATTEND Radiology Diagnostic Radiology
DX: I70.201 Unspecified atherosclerosis of native arteries of extremities, right leg (principal); E11.9 Type 2 diabetes mellitus without complications; Z79.84 Long term (current) use of oral hypoglycemic drugs

== ENCOUNTER → 2021-03-28 12:31 | Outpatient (CLI) | payer MEDICARE ==
[2021-03-24 06:52] VITALS: BMI 28.0
[~2021-03-28 12:31] MED LIST changes: +PLAVIX75 MG PO
== END | disposition home or self-care (01) ==
LOC: D.US 12:31
PROVIDERS: ATTEND Radiology Diagnostic Radiology
DX: R10.32 Left lower quadrant pain (principal)

== ENCOUNTER → 2021-04-22 10:06 | Outpatient (CLI) | payer MEDICARE ==
[2021-03-24 06:52] VITALS: BMI 28.0
== END | disposition home or self-care (01) ==
LOC: D.HCCECHO 10:06
PROVIDERS: ATTEND Internal Medicine Cardiovascular Disease
DX: I10 Essential (primary) hypertension (principal)